=== PATIENT | male | born 1940 | race Two or more races ===

== ENCOUNTER 2024-12-21 16:59 | Inpatient (IN) | payer MEDICAID, SELFPAY ==
[2024-12-21] VITALS (8 sets, daily range): BP systolic 148–252; BP diastolic 79–108; PULSE 63–90; RESP 14–20; TEMP 36.6; O2SAT 95–98; BMI 27.4
--- NOTE | 2024-12-21 17:09 | EKG_ITS ---
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
[2024-12-21 17:52] LABS: Basophils # (Auto) 0.1 Thou/mm3 (0.0-0.2); Basophils % (Auto) 1 % (0-2.5); Eosinophils # (Auto) 0.4 Thou/mm3 (0.0-0.5); Eosinophils % (Auto) 4 % (0-10); Hematocrit 38.4 % (41.0-53.0); Hemoglobin 13.8 g/dL (13.5-16.0); Immature Granulocytes % (Auto) 0 % (0-0); Immature Granulocytes Auto 0.04 Thou/mm3 (0.00-0.00); Lymphocytes # (Auto) 3.5 Thou/mm3 (1.0-4.8); Lymphocytes % (Auto) 35 % (10-50); Mean Corpuscular HGB Conc 35.9 g/dl (31.0-37.0); Mean Corpuscular Hemoglobin 31.8 pg (25.0-35.0); Mean Corpuscular Volume 89 fL (80-100); Monocytes # (Auto) 0.9 Thou/mm3 (0.0-0.8); Monocytes % (Auto) 8 % (0-12); Neutrophils # (Auto) 5.2 Thou/mm3 (1.8-7.7); Neutrophils % (Auto) 51 % (37-80); Nucleated Red Blood Cell % 0 /100 WBC (0); Platelet Count 207 Thou/mm3 (140-440); RDW Standard Deviation 43.8 fL (35.1-43.9); Red Blood Count 4.34 Miln/mm3 (4.50-5.90); White Blood Count 10.1 Thou/mm3 (3.8-10.6)
[2024-12-21 18:17] LABS: Partial Thromboplastin Time 23.8 Seconds (22.0-36.0)
[2024-12-21 18:18] LABS: B-Type Natriuretic Peptide 24 pg/mL (0-100)
[2024-12-21 18:21] LABS: Alanine Aminotransferase 19 U/L (10-49); Albumin, Serum 4.4 gm/dL (3.4-4.8); Albumin/Globulin Ratio 1.3 (1.2-2.2); Alkaline Phosphatase 63 U/L (46-116); Anion Gap 12 (7-16); Aspartate Amino Transferase 27 U/L (0-34); BUN/Creatinine Ratio 11 Ratio (12-20); Bilirubin,Total 0.4 mg/dL (0.3-1.2); Blood Urea Nitrogen 11 mg/dL (9-23); Chloride 99 mMol/L (98-107); Estimated Creatinine Clearance 60.1 mL/min (>60); Globulin 3.4 gm/dL (2.3-3.5); Glucose 127 mg/dL (74-106); Osmolality,Calculated 271 (275-295); Sodium 135 mMol/L (136-145); Total Protein 7.8 gm/dL (5.7-8.2); Troponin I < 0.020 ng/mL (0.0-0.045); eGFR > 60 See Note
[2024-12-21 18:53] LABS: Collection Type, Urine Clean Catch; RBC,Urine 0 /hpf (0-3); Squamous Epithelial Cell,Urine 0 /hpf (0-5)
--- NOTE | 2024-12-21 19:02 | XR_ITS ---
Examination: AP chest single view TECHNIQUE: AP portable upright chest single view Date and time: December 21, 20242034 hours Weakness and shortness of breath beginning 4 days ago. FINDINGS: No significant cardiac enlargement Minor atelectasis left lower lobe No pneumonia or pulmonary edema IMPRESSION: Minor atelectasis left lower lobe
--- NOTE | 2024-12-21 19:03 | XR_ITS ---
Examination: CT chest, without intravenous contrast. CT abdomen, without intravenous contrast. CT pelvis, without intravenous contrast. 2-D sagittal and coronal reconstructions. 3-D reconstructions. Date and time of exam:December 21, 2024 1924 hours INDICATIONS: Weakness chest pain shortness of breath today CTDI vol (mgy) 16 DLP (MGycm)1135 Technique: Multiple CT images, 3.0 mm slice thickness, obtained chest, abdomen, pelvis, with the high-resolution 64 slice scanner.. Sagittal and coronal 2-D reconstructions are obtained. 3-D reconstructions Low dose protocols were performed. One or more of the following dose reduction techniques were used; automated exposure control, adjustment of the mA and/or KV according to patient size, use of iterative reconstruction technique. Findings: No thoracic aortic aneurysm dilatation No paratracheal tracheobronchial or bronchopulmonary adenopathy Moderate vascular congestion No pneumonia or pulmonary edema No liver dilatation no gallstones No pancreatic or adrenal mass Spleen is not enlarged No renal or ureteral calculi, no hydronephrosis Aortic calcification no aneurysm dilatation Normal appendix No bowel obstruction 20 mm fat-containing umbilical hernia Mild prostatomegaly Minimal urinary bladder wall thickening Moderate osteopenia Moderate narrowing hip joints IMPRESSION: Moderate vascular congestion No pneumonia or pulmonary edema No acute process in the abdomen or pelvis
--- NOTE | 2024-12-21 19:03 | XR_ITS ---
Examination: CT brain head without contrast. 2-D sagittal coronal reconstructions Date and time of exam:December 21, 2024 1919 hours INDICATIONS: Weakness headache this week CTDI: vol (mGy):50 DLP: (mGycm):964 Technique: Multiple CT axial sections of the brain have been obtained, 5 mm slice thickness. Contrast has not been administered. 2-D sagittal, coronal reconstructions have been obtained Low dose protocols were performed. One or more of the following dose reduction techniques were used; automated exposure control, adjustment of the mA and/or KV according to patient size, use of iterative reconstruction technique. Findings: No significant ventricular enlargement. Intra-axial or extra-axial hemorrhage density is not seen. No mass effect or midline shift Basal cisterns are not remarkable. Fourth ventricle is midline. Cranial vault intact. Impression: Negative for acute hemorrhage, mass effect or midline shift Advise clinical correlation follow up accordingly
[2024-12-21 19:06] LABS: Bilirubin,Urine Negative (Negative); Blood,Urine Trace (Negative); Clarity,Urine Clear (Clear/Hazy); Color,Urine Colorless (Lt Yel-Yel); Glucose, Urine Negative (Negative); Ketones,Urine Negative (Negative); Leukocyte Esterase,Urine Negative (Negative); Nitrite,Urine Negative (Negative); Protein,Urine Negative (Neg - Trace); Specific Gravity,Urine 1.005 (1.001-1.035); Urobilinogen,Urine Negative mg/dL (0.0-1.0); WBC,Urine < 1 /hpf (0-5)
--- NOTE | 2024-12-21 19:06 | EDNOTE_ITS ---
ED Weakness RME/HPI General Chief complaint: Weakness Stated complaint: WEAKNESS, FATIGUE X4DAYS Time Seen by Provider: 12/21/24 19:01 Arrival date/time: 12/21/24 16:59 RME / HPI RME / HPI Narrative: This section includes all my notes and documentations, including HPI, PE, and ED course. Usman Snyder MD HPI: 84 y/o male with Hx of HTN presents to ED c/o weakness and severe tiredness x few days. Denies nausea and vomiting, but reports mildly decreased appetite. No headache or dizziness. No speech or visual impairment. No loss of power in the arms or legs. No chest pain. No other complaints. ROS: All negative except as documented in HPI. Physical Exam: General:? Alert and oriented.? Appearance of malaise noted. High BP noted. Eyes:? Conjunctivae and lids clear.? EOMI.? PERRL. ENT:? No nasal congestion.? Pharynx normal.? Tympanic membrane normal bilaterally.??? Neck:? Supple.? No carotid bruit.? No JVD.?? Heart:? RRR.? Lungs:? No respiratory distress.? Good air movement.? No rhonchi, wheezing, rales.?? Abdomen:? Soft and nontender.? Back:? No CVA tenderness.?? Legs:? No clubbing, cyanosis, edema.? Skin:? Warm and dry.?? Neuro:? Alert and oriented X 3.? Cranial Nerves II-XII grossly intact.? No peripheral motor deficits. I reviewed all diagnostic test results. My interpretation of the EKG is sinus rhythm with no acute ST?T changes. My interpretation of the chest x-ray is NAD. My review of the Head/Brain CT report is NAD. My review of the Head/Neck CTA report is NAD. My review of the Chest/Abdo/Pelvis CT report is NAD. Blood tests and urine tests unremarkable. Patient developed slurred speech here with no other focal neurological findings. At this point, diagnoses include Stroke-like symptoms, Hypertensive Urgency Treatment here included Catapres, Aspirin, Metoprolol, and Hydralazine. Initially, oral clonidine 0.3 given for high BP. With no improvement, oral metoprolol 50 mg and hydralazine 10 mg IV given. Significant improvement noted. I discussed the case with our teleneurologist and hospitalist. About the presentation and exam and diagnostics and treatments here. And need of further care in the hospital. Will accept the patient. Usman Snyder MD Related Data Allergies Allergy/AdvReac Type Severity Reaction Status Date / Time aspirin Allergy Severe Anaphylaxis Verified 12/21/24 23:24 Review of Systems Review of Systems Systems Reviewed: All systems reviewed, normal except as documented Past Medical History Past Medical History CARDIAC: Positive Hypertension Social History SMOKING STATUS: Never smoker ED Exam Narrative Physical exam: Refer to HPI above Course Course Course Narrative: CXR is ordered for determining the etiology of shortness of breath. Quality Measures none Orders Category Date Time Status Bedside COVID-19 Antigen Test NOW Care 12/21/24 19:44 Active Bedside Influenza A&B Antigen Test NOW Care 12/21/24 19:02 Completed COVID-19 Screening Questionnaire NOW Care 12/21/24 22:38 Active Reprographics Technician Q4H START 00 Care 12/21/24 19:51 Active Decision to Admit X1 Care 12/21/24 22:38 Completed EKG (ED ONLY) *Do not use* NOW Care 12/21/24 17:09 Completed Saline [Insert IV] NOW Care 12/21/24 19:[address] angio stroke protocol Stat Exams 12/21/24 21:[address] chest abdomen pelvis wo Stat Exams 12/21/24 19:[address] head/brain wo con Stat Exams 12/21/24 19:03 Completed EKG (ED Only) Stat Exams 12/21/24 17:09 Ordered XR chest 1V portable Stat Exams 12/21/24 19:02 Completed B-Type Natriuretic Peptide Stat Lab 12/21/24 17:35 Completed C-Reactive Protein Stat Lab 12/21/24 17:35 Completed CBC Stat Lab 12/21/24 17:35 Completed COVID-19 Antigen (In-House) Stat Lab 12/21/24 19:02 Ordered Comprehensive Metabolic Panel Stat Lab 12/21/24 17:35 Completed Free T4 (Free Thyroxine) Stat Lab 12/21/24 17:35 Completed Lactate (Lactic Acid) Stat Lab 12/21/24 20:27 Completed Magnesium Stat Lab 12/21/24 17:35 Completed Partial Thromboplastin Time Stat Lab 12/21/24 17:35 Completed Procalcitonin Stat Lab 12/21/24 17:35 Completed Prothrombin Time with INR Stat Lab 12/21/24 17:35 Completed Sed Rate (ESR) Stat Lab 12/21/24 17:35 Completed Thyroid Stimulating Hormone Stat Lab 12/21/24 17:35 Completed Troponin I Stat Lab 12/21/24 17:35 Completed Urinalysis Stat Lab 12/21/24 18:44 Completed Aspirin Chew Med 12/21/24 21:48 Discontinued 324 mg PO X1 ONE Metoprolol Tartrate [Lopressor] Med 12/21/24 20:21 Discontinued 25 mg PO X1 ONE cloNIDine HCL [Catapres] Med 12/21/24 18:45 Discontinued 0.3 mg PO X1 ONE hydrALAZINE INJ [Apresoline Inj] Med 12/21/24 20:21 Discontinued 10 mg IVP X1 ONE Vital Signs Vital signs: Vital Signs Temperature 97.9 F 12/21/24 17:17 Pulse Rate 90 12/21/24 17:17 Respiratory Rate 20 12/21/24 17:17 Blood Pressure 209/89 H 12/21/24 17:17 Pulse Oximetry (%) 95 12/21/24 17:17 Oxygen Delivery Method Room Air 12/21/24 17:17 Weakness MDM Narrative MDM Narrative:: Scribe Attestation: Mitra Luis, am scribing for and in the presence of Dr. Snyder. Provider Notation: Although this document has been carefully reviewed, there may still be some phonetic and other typographical errors.? These errors are purely grammatical due to imperfections in the software program and should not be construed in any way to? compromise the substance of the patient's medical care during this visit. 84 y/o male with Hx of HTN presents to ED c/o weakness and tiredness x few days. Denies nausea and vomiting, but reports mildly decreased appetite. No other complaints. Patient data External records reviewed:: [facility] previous records (No prior ED records available for review.) Clinical information provided by:: patient Social determinants that could affect healthcare access:: none Patient has the following chronic illnesses:: HTN How is presenting disease/condition affected by chronic disease/condition?: exacerbated by Evaluation data The following diagnostics were reviewed and interpreted by me:: lab results, radiology exam(s) and EKG tracing(s) Lab and/or radiology exams considered but not ordered:: None Interpretation Summary: I reviewed all diagnostic test results. My interpretation of the EKG is sinus rhythm with no acute ST?T changes. My interpretation of the chest x-ray is NAD. My review of the Head/Brain CT report is NAD. My review of the Head/Neck CTA report is NAD. My review of the Chest/Abdo/Pelvis CT report is NAD. Blood tests and urine tests unremarkable. Medications / Prescriptions Medications or Prescriptions considered but not ordered:: None Medication administrations:: Medication Administration History Acetaminophen (Acetaminophen 325 Mg Tablet) 650 mg PO Q6H PRN PRN Reason: Fever >100.4 or pain Stop: 01/20/25 23:03 Aspirin (Aspirin 325 Mg Tablet) 81 mg PO QDAY MARGAUX Stop: 01/21/25 08:59 Atorvastatin Calcium (Atorvastatin Calcium 20 Mg Tablet) 80 mg PO HS MARGAUX Stop: 01/21/25 20:59 Docusate Sodium (Docusate Sod 100 Mg Capsule) 100 mg PO QDAY PRN; Protocol PRN Reason: CONSTIPATION Stop: 01/20/25 23:03 Enoxaparin Sodium (Enoxaparin Sod Inj 40 Mg/0.4 Ml Syringe) 40 mg SC QDAY MARGAUX Stop: 01/05/25 08:59 Ondansetron HCl (Ondansetron Inj 2 Mg/Ml Inj 2 Ml) 4 mg IVP Q6H PRN; Protocol PRN Reason: NAUSEA OR VOMITING Stop: 01/20/25 23:03 Pantoprazole Sodium (Pantoprazole 40 Mg Tablet) 40 mg PO DAILY MARGAUX Stop: 01/21/25 08:59 Sennosides (Senna Tablet) 1 tab PO QDAY PRN; Protocol PRN Reason: constipation Stop: 01/20/25 23:03 Discontinued Medications Aspirin (Aspirin 81 Mg Chew) 324 mg PO X1 ONE Stop: 12/21/24 21:49 Last Admin: 12/21/24 23:26 Dose: Not Given Documented By: EF Non-Admin Reason: Contraindicated Clonidine (Clonidine Hcl 0.1 Mg Tablet) 0.3 mg PO X1 ONE Stop: 12/21/24 18:46 Last Admin: 12/21/24 19:42 Dose: 0.3 mg Documented By: CVL Hydralazine HCl (Hydralazine Inj 20 Mg/Ml Vial) 10 mg IVP X1 ONE Stop: 12/21/24 20:22 Last Admin: 12/21/24 20:28 Dose: 10 mg Documented By: EF Sodium Chloride (Ns) 500 mls @ 999 mls/hr IV .Q31M ONE Stop: 12/21/24 23:34 Last Infusion: 12/21/24 23:55 Dose: Infused Documented By: Admin: 12/21/24 23:28 Dose: 999 mls/hr Documented By: EF Lactated Ringer's (Lactated Ringers) 500 mls @ 999 mls/hr IV .Q31M ONE Stop: 12/22/24 02:07 Metoprolol Tartrate (Metoprolol Tartrate 25 Mg Tablet) 25 mg PO X1 ONE Stop: 12/21/24 20:22 Last Admin: 12/21/24 20:27 Dose: 25 mg Documented By: EF Catapres, Aspirin, Metoprolol, Apresoline Consultations Consultation(s) initiated? (list below): Yes Consultation #1 (Physician, Specialty, Details): I discussed the case with our teleneurologist. About the presentation and exam and diagnostics and treatments here. Recommended admission for further care. Time: 23:04 Diagnosis Weakness Differential Diagnosis: acute myocardial infarction, anemia, hypoglycemia, hypothyroidism, rhabdomyolysis, sepsis, dehydration and other (CVA, TIA, electrolyte abnormalities) Most likely diagnosis given after review of the tests above:: Stroke-like symptoms, Hypertensive Emergency Admission Indicated Admission indicated?: indicated Explain why admission is indicated or not indicated:: Stroke-like symptoms, Hypertensive Emergency Admission Request Was there a request for admission?: Yes Admission Attestation Admission request attestation: Discussed case with Hospitalist service regarding admission. Discussed patients ED course, exam findings, labs, and radiology results. The Hospitalist [agrees] to accept the patient for admission. Disposition Plan Disposition Plan: Admit Critical Care Time Critical Care Time Critical Care Time: Yes Total Critical Care Time (min.): 42 Attestation: Due to a high probability of clinically significant, life threatening dete rioration, the patient required my highest level of preparedness to intervene emergently and I personally spent this critical care time directly and personally managing the patient. This critical care time included obtaining a history; examining the patient; ordering and review of studies; arranging urgent treatment with development of a management plan; evaluation of patient's response to treatment; frequent reassessment; and discussions with family and other providers. It was exclusive of separately billable procedures and treating other patients and teaching time. Usman Snyder MD Discharge Plan Plan Patient Disposition: Admit Acute Care w/in Hospital Problem List Clinical Impression: Stroke-like symptoms, Hypertensive emergency, Generalized weakness
[2024-12-21] MEDS: cloNIDine HCL 0.1 MG TABLET 0.3 MG PO (19:42)
[2024-12-21 20:08] LABS: Sed Rate (ESR) 30 mm/hr (0-20)
[2024-12-21] MEDS: METOPROLOL TARTRATE 25 MG TABLET PO (20:27)
[2024-12-21] MEDS: hydrALAZINE INJ 20 MG/ML VIAL 10 MG IVP (20:28)
[2024-12-21 20:35] LABS: Lactate (Lactic Acid) 2.4 mMol/L (0.4-2.0)
[2024-12-21 21:09] LABS: C-Reactive Protein < 0.5 mg/dL (0.0-0.9)
--- NOTE | 2024-12-21 21:25 | XR_ITS ---
Examination: CTA carotids with intravenous contrast CTA brain, head with intravenous contrast. 2-D sagittal, coronal reconstructions. 3-D reconstructions. Exam date and time: December 21, 2024 2134 hours INDICATIONS: Stroke alert onset focal neurologic deficit this evening CTDI: vol (mGy) 31 DLP: (mGycm) 527 Technique: Multiple CTA axial brain, head carotid images post intravenous contrast injection 9 5 cc, [id number]. 2-D sagittal, coronal reconstructions. 3-D reconstructions, 3-D post processing including vascular maximum intensity projection images. Low dose protocols were performed. One or more of the following dose reduction techniques were used; automated exposure control, adjustment of the mA and/or KV according to patient size, use of iterative reconstruction technique. Findings: 30% stenosis origin right internal carotid artery 90% stenosis origin left internal carotid artery Dominant left vertebral artery Basilar artery posterior cerebral branches, fill Juxtasellar supraclinoid portions internal carotid arteries M1 segments middle cerebral artery branches posterior cerebral arteries and anterior cerebral arteries fill with no large vessel occlusions IMPRESSION: 30% stenosis origin right internal carotid artery. 90% stenosis origin left internal carotid artery No cerebral large vessel arterial occlusions or thrombus
[2024-12-21 21:56] LABS: Free T4 (Free Thyroxine) 1.45 ng/dL (0.89-1.76); Procalcitonin 0.06 ng/ml (0.0-0.49); Thyroid Stimulating Hormone 2.07 uIU/mL (0.55-4.78)
--- NOTE | 2024-12-21 22:03 | ESCONSULT_ITS ---
Tele Neuro Consultation Consultation Date 12/21/24 Most Recent Vital Signs Last Vital Signs Temp 97.9 F 12/21/24 17:17 Pulse 75 12/21/24 20:28 Resp 14 12/21/24 19:40 BP 149/80 H 12/21/24 21:19 Pulse Ox 97 12/21/24 19:40 O2 Del Method Room Air 12/21/24 17:17 Laboratory-Coagulation Panel PT 11.0 Seconds (9.0-12.2) 12/21/24 17:35 INR 1.0 (0.9-1.3) 12/21/24 17:35 APTT 23.8 Seconds (22.0-36.0) 12/21/24 17:35 Consultation Narrative [facility] Patient Name:???juan morales Date of :???1940 Identification Number:??? Date of Service:???12/21/2024 21:28:43 Diagnosis:?R47.81 - Slurred speech ?M62.81 - Generalized Muscle Weakness Impression: ?This patient is an 84-year-old male with a past medical history of hypertension presenting for evaluation of generalized weakness and slurred speech. It is not entirely clear what the cause of the patient's generalized fatigue, and weakness may be related to. He does appear to have a mild dysarthria, but it is unclear when this started. Recommend placing the patient on aspirin and obtaining an MRI brain without contrast while toxic metabolic evaluation is underway. CT angiogram is pending, but given his lack of focal neurologic findings he would not be a candidate for thrombectomy. Our recommendations are outlined below. Recommendations: ? Stroke/Telemetry Floor ? Neuro Checks (Q4) ? Bedside Swallow Eval ? DVT Prophylaxis ? IV Fluids, Normal Saline ? Head of Bed 30 Degrees ? Euglycemia and Avoid Hyperthermia (PRN Acetaminophen) ? Initiate or continue Aspirin 81 MG daily ? Antihypertensives PRN if Blood pressure is greater than 220/120 or there is a concern for End organ damage/contraindications for permissive HTN. If blood pressure is greater than 220/120 give labetalol PO or IV or Vasotec IV with a goal of 15% reduction in BP during the first 24 hours. Sign Out: ? Discussed with Emergency Department Provider Advanced Imaging: Advanced imaging has been ordered. Results pending. Metrics: Last Known Well: Unknown Dispatch Time: 12/21/2024 21:28:43 Arrival Time: 12/21/2024 16:59:00 Initial Response Time: 12/21/2024 21:31:34Symptoms: facial droop. Initial patient interaction: 12/21/2024 21:34:40 NIHSS Assessment Completed: 12/21/2024 21:36:32Patient is not a candidate for Thrombolytic. Thrombolytic Medical Decision: 12/21/2024 21:36:36Patient was not deemed candidate for Thrombolytic because of following reasons: LKW outside 4.[address] Head: I personally reviewed all the CT images that were available to me and it showed: no acute findings Primary Provider Notified of Diagnostic Impression and Management Plan on: 12/21/2024 21:49:26 History of Present Illness:Patient is a 84 year old Male. Patient was brought by private transportation with symptoms of facial droop. This patient is an 84-year-old male with a past medical history of hypertension presenting to the ER for evaluation of generalized weakness and slurred speech. The patient states that he has been experiencing increasing generalized weakness over the last several days and was being worked up for toxic metabolic issues while in the ER. It was then noted that he had slurring of his speech by ER staff for which a stroke alert was activated. The patient denies any changes to his speech and denies any focal neurologic changes. He is also endorsing lethargy, fatigue, and mild headache. Past Medical History: ?Hypertension ?There is no history of Stroke Medications: No Anticoagulant use? No Antiplatelet use Reviewed EMR for current medications Allergies:? Reviewed Social History: Drug Use: Yes Family History: There is no family history of premature cerebrovascular disease pertinent to this consultation ROS : 14 Points Review of Systems was performed and was negative except mentioned in HPI. Past Surgical History: There Is No Surgical History Contributory To Today?s Visit Examination: BP(158/88),?Pulse(88), 1A: Level of Consciousness - Alert; keenly responsive?+ 0 1B: Ask Month and Age - Both Questions Right?+ 0 1C: Blink Eyes & Squeeze Hands - Performs Both Tasks?+ 0 2: Test Horizontal Extraocular Movements - Normal?+ 0 3: Test Visual Pritchard - No Visual Loss?+ 0 4: Test Facial Palsy (Use Grimace if Obtunded) - Normal symmetry?+ 0 5A: Test Left Arm Motor Drift - No Drift for 10 Seconds?+ 0 5B: Test Right Arm Motor Drift - No Drift for 10 Seconds?+ 0 6A: Test Left Leg Motor Drift - No Drift for 5 Seconds?+ 0 6B: Test Right Leg Motor Drift - No Drift for 5 Seconds?+ 0 7: Test Limb Ataxia (FNF/Heel-Shipley) - No Ataxia?+ 0 8: Test Sensation - Normal; No sensory loss?+ 0 9: Test Language/Aphasia - Normal; No aphasia?+ 0 10: Test Dysarthria - Mild-Moderate Dysarthria: Slurring but can be understood?+ 1 11: Test Extinction/Inattention - No abnormality?+ 0 NIHSS Score:?1 Pre-Morbid Modified Rosangela Scale:0 Points = No symptoms at all Spoke with :?er provider This consult was conducted in real time using interactive audio and video technology. Patient was informed of the technology being used for this visit and agreed to proceed. Patient located in hospital and provider located at home/office setting. Patient is being evaluated for possible acute neurologic impairment and high probability of imminent or life-threatening deterioration. I spent total of 35 minutes providing care to this patient, including time for face to face visit via telemedicine, review of medical records, imaging studies and discussion of findings with providers, the patient and/or family. Dr Maurice Willams [facility] For Inpatient follow-up with [facility] physician please call [facility] at . As we are not an outpatient service for any post hospital discharge needs please contact the hospital for assistance. If you have any questions for the [facility] physicians or need to reconsult for clinical or diagnostic changes please contact us via [facility] at .
--- NOTE | 2024-12-21 23:07 | ECHO_ITS ---
Transthoracic Echo Report Ht (in): 68 Wt (lb): 185 Exam Location: Echo Lab Status: Emergency Gynecologist: Karishma Barrios Indications: Procedure Performed: BP: 157 / 80 HR: 68 Technical Quality: Technically difficult study MEASUREMENTS (Male / Female) Normal Values 2D ECHO LV Diastolic Diameter PLAX 4.8 cm 4.2 - 5.9 / 3.9 - 5.3 cm LV Systolic Diameter PLAX 3.2 cm IVS Diastolic Thickness 1.0 cm 0.6 - 1.0 / 0.6 - 0.9 cm LVPW Diastolic Thickness 1.0 cm 0.6 - 1.0 / 0.6 - 0.9 cm LV Relative Wall Thickness 0.4 LVOT Diameter 1.9 cm LV Ejection Fraction MOD BP 46.5 % >= 55 % LV Cardiac Index MOD BP 1551.2 cm?/min?m? LV Ejection Fraction MOD 4C 37.8 % LV Cardiac Index MOD 4C 1296.0 cm?/min?m? LV Ejection Fraction 4C AL 39.6 % LV Cardiac Index 4C AL 1411.7 cm?/min?m? LV Ejection Fraction MOD 2C 53.7 % LV Cardiac Index MOD 2C 1705.6 cm?/min?m? LV Ejection Fraction 2C AL 53.4 % LV Cardiac Index 2C AL 1716.2 cm?/min?m? LA Volume Index 19.7 cm?/m? 16 - 28 cm?/m? M-MODE Aortic Root Diameter MM 3.3 cm LA Systolic Diameter MM 3.2 cm LA Ao Ratio MM 1.0 AV Cusp Separation MM 1.9 cm DOPPLER AV Peak Velocity 142.0 cm/s AV Peak Gradient 8.1 mmHg AV Mean Gradient 5.0 mmHg AV Velocity Time Integral 30.7 cm LVOT Peak Velocity 83.5 cm/s LVOT Peak Gradient 2.8 mmHg LVOT Velocity Time Integral 19.6 cm LVOT Cardiac Index 1865.8 cm?/min?m? AV Area Cont Eq vti 1.8 cm? AV Area Cont Eq pk 1.7 cm? MV Area PHT 3.3 cm? Mitral E Point Velocity 44.6 cm/s Mitral A Point Velocity 75.2 cm/s Mitral E to A Ratio 0.6 LV E' Lateral Velocity 8.2 cm/s Mitral E to LV E' Lateral Ratio 5.5 LV E' Septal Velocity 6.2 cm/s Mitral E to LV E' Septal Ratio 7.2 PV Peak Velocity 65.2 cm/s PV Peak Gradient 1.7 mmHg FINDINGS Left Ventricle Normal left ventricular size, wall thickness, systolic function with no obvious regional wall motion abnormalities. There is grade I diastolic dysfunction of the left ventricle (impaired relaxation pattern). The ejection fraction is visually estimated at 55-60%. Right Ventricle The right ventricle is normal in size and systolic function. Left Atrium The left atrium is normal by two-dimensional, color flow and Doppler imaging with no structural abnormalities, no thrombus formation present. Right Atrium The right atrium is normal by two-dimensional imaging, color flow and Doppler imaging with no structural abnormalities, no thrombus formation present. Atrial Septum The interatrial septum appears normal with no evidence of a shunt. Aorta The aorta is normal by two-dimensional, color flow and Doppler interrogation. Mitral Valve The mitral valve is normal by two-dimensional, color flow and Doppler interrogation. There is no significant mitral valve regurgitation, stenosis or prolapse. Aortic Valve The aortic valve is trileaflet and normal by two-dimensional, color flow and Doppler interrogation. There is no significant aortic valve regurgitation. Tricuspid Valve The tricuspid valve is normal by two-dimensional, color flow and Doppler interrogation. There is trace tricuspid valve regurgitation. Pulmonic Valve The pulmonic valve is not well visualized. There is no significant pulmonic valve regurgitation. Vessels The pulmonary artery appears normal. The inferior vena cava pulmonary and hepatic veins appear normal. Pericardium The pericardium is normal by two-dimensional imaging. There is no significant pericardial effusion. CONCLUSIONS Indication: stroke Negative bubble study for any PFO or ASD. Consider FARHAN if high clinical riskof suspicion. Normal LV size and function. Estimated EF 55-60%. Grade I diastolic dysfunction. RV is normla in size and systolic function. Trace TR and MR. Jax Evangelistacj (Electronically Signed) Final Date: 23 December 2024 13:04
--- NOTE | 2024-12-21 23:26 | ESHP_ITS ---
Documentation for date of: 12/21/24 HPI History of Present Illness Chief complaint: Weakness, slurred speech History of present illness: 84 y/o M with PMHx significant for HTN presents with chief complaint of weakness x 2 days and slurred speech. Patient is complaining of generalized weakness with fatigue for past 2 days, most notably in the bilateral upper extremities. Patient was complaint of generalized malaise, prompting ED visit. At some point today, patient experienced slurred speech and feelings of heavy tongue . Patient denies any history of similar symptoms in the past. Patient denies fever, chills, SOB, chest pain, nausea, vomiting. ED COURSE: Labs significant for: WBC 10.1, hemoglobin 13.8, lactic acid 2.4 up trended to 2.9. Imaging significant for: CT abdomen/chest/pelvis showed mild vascular congestion. Head CT unremarkable. Head/neck CTA showing no LVO. Patient was severely hypertensive, blood pressure at 252/103. Patient received clonidine, metoprolol, hydralazine, blood pressure decreased significantly. Teleneuro consulted, recommended admission and further workup. PMH: Hypertension PSH: None SH: Denies alcohol, tobacco, illicit drug use. Allergies:?NKDA Medications: Losartan Review of Systems Review of Systems Systems Reviewed: All systems reviewed, normal except as documented Past Medical History Past Medical History Comments PMH COMMENT: PMH: Hypertension PSH: None SH: Denies alcohol, tobacco, illicit drug use. Allergies:?NKDA Medications: Losartan Exam Vital Signs Temp Pulse Resp BP Pulse Ox O2 Del Method 97.9 F 63 15 148/79 H 98 Room Air 12/21/24 17:17 12/21/24 23:15 12/21/24 23:15 12/21/24 23:15 12/21/24 23:15 12/21/24 23:15 Narrative Exam PE: Gen: Well-developed and well-nourished. HEENT: NCAT, PERRLA, EOMI, MMM, anicteric conjunctivae. CVS: normal S1 and S2. RRR. No M/R/G. Resp: CTA B/L. No rhonchi, rales, crackles or wheezing. Abd: soft, non-tender, non-distended. MSK: Good ROM in BUE & BLE. No edema or rash. Neuro: CN II-XII grossly intact. Strength 5/5 in BUE & BLE. Alert and oriented x3. Left-sided facial droop with nasolabial flattening. Sensation intact bilaterally. Psych: appropriate mood and affect. Results: Labs 12/21/24 17:35 12/21/24 17:35 Labs: Short CBC 12/21/24 Range/Units 17:35 WBC 10.1 (3.8-10.6) Thou/mm3 Hgb 13.8 (13.5-16.0) g/dL Hct 38.4 L (41.0-53.0) % Plt Count 207 (140-440) Thou/mm3 BMP 12/21/24 17:35 Sodium 135 L Potassium 4.0 Chloride 99 Carbon Dioxide 24.0 BUN 11 Creatinine 1.0 Glucose 127 H Calcium 10.0 Cardiac Enzymes 12/21/24 Range/Units 17:35 Troponin I < 0.020 (0.0-0.045) ng/mL Liver Function 12/21/24 Range/Units 17:35 Total Bilirubin 0.4 (0.3-1.2) mg/dL AST 27 (0-34) U/L ALT 19 (10-49) U/L Alkaline Phosphatase 63 (46-116) U/L Albumin 4.4 (3.4-4.8) gm/dL Urine 12/21/24 Range/Units 18:44 Urine Color Colorless A (Lt Yel-Yel) Urine Clarity Clear (Clear/Hazy) Urine pH 7.0 (5.0-7.0) Ur Specific [place] 1.005 (1.001-1.035) Urine Protein Negative (Neg - Trace) Urine Glucose (UA) Negative (Negative) Quality Measures Quality Measures VTE prophylaxis Advance care planning discussed with:: patient and child Medications Home Medications and Allergies Allergies Allergy/AdvReac Type Severity Reaction Status Date / Time aspirin Allergy Severe Anaphylaxis Verified 12/21/24 23:24 Visit Medications Acetaminophen (Acetaminophen 325 Mg Tablet) 650 mg PO Q6H PRN PRN Reason: Fever >100.4 or pain Stop: 01/20/25 23:03 Aspirin (Aspirin 325 Mg Tablet) 81 mg PO QDAY MARGAUX Stop: 01/21/25 08:59 Atorvastatin Calcium (Atorvastatin Calcium 20 Mg Tablet) 80 mg PO HS MARGAUX Stop: 01/21/25 20:59 Docusate Sodium (Docusate Sod 100 Mg Capsule) 100 mg PO QDAY PRN; Protocol PRN Reason: CONSTIPATION Stop: 01/20/25 23:03 Enoxaparin Sodium (Enoxaparin Sod Inj 40 Mg/0.4 Ml Syringe) 40 mg SC QDAY MARGAUX Stop: 01/05/25 08:59 Sodium Chloride (Ns) 500 mls @ 999 mls/hr IV .Q31M ONE Stop: 12/21/24 23:34 Ondansetron HCl (Ondansetron Inj 2 Mg/Ml Inj 2 Ml) 4 mg IVP Q6H PRN; Protocol PRN Reason: NAUSEA OR VOMITING Stop: 01/20/25 23:03 Pantoprazole Sodium (Pantoprazole 40 Mg Tablet) 40 mg PO DAILY MARGAUX Stop: 01/21/25 08:59 Sennosides (Senna Tablet) 1 tab PO QDAY PRN; Protocol PRN Reason: constipation Stop: 01/20/25 23:03 Discontinued Medications Aspirin (Aspirin 81 Mg Chew) 324 mg PO X1 ONE Stop: 12/21/24 21:49 Clonidine (Clonidine Hcl 0.1 Mg Tablet) 0.3 mg PO X1 ONE Stop: 12/21/24 18:46 Last Admin: 12/21/24 19:42 Dose: 0.3 mg Hydralazine HCl (Hydralazine Inj 20 Mg/Ml Vial) 10 mg IVP X1 ONE Stop: 12/21/24 20:22 Last Admin: 12/21/24 20:28 Dose: 10 mg Metoprolol Tartrate (Metoprolol Tartrate 25 Mg Tablet) 25 mg PO X1 ONE Stop: 12/21/24 20:22 Last Admin: 12/21/24 20:27 Dose: 25 mg Assessment & Plan Plan 84 y/o M with PMHx significant for HTN presents with chief complaint of weakness x 2 days and slurred speech, admitted for hypertensive emergency. #Hypertensive emergency #HTN, patient history Patient has history of hypertension controlled with losartan. Patient presenting with chief complaint of weakness x 2 days, had sudden onset of slurred speech, feeling tongue and jaw were heavy . Blood pressure reached 252/103. Received clonidine, metoprolol, hydralazine in the ED. BP decreased to 128/56. Teleneuro consulted, recommended further workup for potential CVA. - Aspirin 81 mg p.o. daily - MRI without contrast - Neurochecks every 4 hours - Blood pressure already decreased by 50%, hold BP meds - Close monitoring of blood pressure - N.p.o. pending swallow screen - ST/PT eval pending #Lactic acidosis Patient had lactic acidosis, 2.4 up trended to 2.9. Patient does not have signs of infection, afebrile, WBC is normal. Suspect secondary to hypertensive emergency. Patient received 500 mL bolus normal saline. - 500 mL bolus lactated Ringer's - Trend lactate - Treat HTN emergency as above DVT prophylaxis: Lovenox GI prophylaxis: Protonix Diet: N.p.o. pending swallow screen Lines: Peripheral IV Code status: Full code Plan of care discussed with attending Dr. Rivera. Ciro Lyon MD PGY?1 Attending Provider Attestation/Addendum I have examined the patient, reviewed labs and imaging findings, discussed the case with the resident(s), and reviewed entered orders. I agree with the plan of care as outlined in this note, with these additional summaries/recommendations: After examination of the patient and review of the clinical data, I feel that this patient needs admission to the hospital for further treatment and evaluation. Patient is a 84-year-old male with a medical history of primary hypertension and dyslipidemia who presents to [facility] emergency department on 12/21/2024 with chief complaints of weakness and tiredness. While in the emergency department patient noted to have slurred speech and stroke alert was called. Patient will be admitted for strokelike symptoms and CVA rule out. He has generalized weakness and slurred speech. Patient was seen by teleneurology who recommends placing patient on aspirin 81 mg p.o. daily and obtaining MRI brain. Head CT showed no evidence of acute hemorrhage, mass effect or midline shift. CTA head and neck showed moderate left ICA stenosis and no LVO. NIHSS score of 1 on admission. Admit patient to telemetry, order MRI brain, allow permissive hypertension 220/120. Order risk factor stratification with lipid panel, TSH, and A1c. Consult in-house neurology, recommendations appreciated. Start high intensity statin. Referral to speech therapy and physical therapy. Order echocardiogram with bubble study. Patient also noted to have significantly elevated blood pressure on admission 252/103 and possible patient's symptoms are related to hypertensive emergency. Patient did receive IV antihypertensives in the ED although we will defer further antihypertensives for now to allow permissive hypertension. Interestingly patient has lactic acidosis of unknown etiology although mild. We will give IV fluids and continue to trend for now. Patient and updated on the plan. All questions answered to satisfaction. Please see residents note for additional details and management. Dr. Miguel MD
[2024-12-21] MEDS: SODIUM CHLORIDE 0.9% 500 ML 500 ML 999 ML IV (23:28)
[2024-12-21 23:34] LABS: Reflex Lactate? Y
[2024-12-21 23:47] LABS: Lactic Acid, 3 HR 2.9 mMol/L (0.4-2.0)
[2024-12-22] VITALS (7 sets, daily range): BP systolic 128–181; BP diastolic 56–92; PULSE 54–99; RESP 16–20; TEMP 36.2–36.8; O2SAT 95–98; BMI 28.3; BMI 28.4
--- NOTE | 2024-12-22 | XR_ITS ---
Examinations: MRI Brain without intravenous contrast. MRA brain without intravenous contrast. MRA carotids without intravenous contrast 3-D vascular reconstructions Date and time of exam: December 22, 2024 0820 hrs. Indications: Stroke alert, generalized weakness beginning 2 days ago onset focal neurologic deficit Technique: Multiple axial and sagittal images of the brain have been obtained MRA brain carotid images without contrast obtained, including 3-D postprocessing, vascular maximum intensity projection images Findings: [place] is not enlarged. The optic chiasm and infundibular stalk are not remarkable. Prepontine and interpeduncular cisterns are not enlarged. No localized enlargement of the medulla or sona. Fourth ventricle and cerebellar tonsils normal in position. Subacute hemorrhage is not seen. Fourth ventricle is midline. Mass in the cerebellopontine angle region is not evident. 7th and 8th nerve complexes exhibits symmetry. Globes are symmetrical with no retro-orbital mass. Increased white matter signal prominent Diffusion-weighted images demonstrate 14 mm focus restricted diffusion right brainstem Mass-effect upon the ventricular system is not identified. MRA carotid images degraded by patient motion. 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
[2024-12-22] MEDS: RINGERS LACTATED 1000 ML 1,000 ML 999 ML IV (04:24)
[2024-12-22 05:31] LABS: Basophils # (Auto) 0.1 Thou/mm3 (0.0-0.2); Basophils % (Auto) 1 % (0-2.5); Eosinophils # (Auto) 0.4 Thou/mm3 (0.0-0.5); Eosinophils % (Auto) 5 % (0-10); Hematocrit 39.1 % (41.0-53.0); Hemoglobin 13.4 g/dL (13.5-16.0); Immature Granulocytes % (Auto) 1 % (0-0); Immature Granulocytes Auto 0.04 Thou/mm3 (0.00-0.00); Lymphocytes # (Auto) 2.7 Thou/mm3 (1.0-4.8); Lymphocytes % (Auto) 31 % (10-50); Mean Corpuscular HGB Conc 34.3 g/dl (31.0-37.0); Mean Corpuscular Hemoglobin 31.4 pg (25.0-35.0); Mean Corpuscular Volume 92 fL (80-100); Monocytes # (Auto) 0.8 Thou/mm3 (0.0-0.8); Monocytes % (Auto) 9 % (0-12); Neutrophils # (Auto) 4.7 Thou/mm3 (1.8-7.7); Neutrophils % (Auto) 54 % (37-80); Nucleated Red Blood Cell % 0 /100 WBC (0); Platelet Count 253 Thou/mm3 (140-440); RDW Standard Deviation 45.2 fL (35.1-43.9); Red Blood Count 4.27 Miln/mm3 (4.50-5.90); White Blood Count 8.6 Thou/mm3 (3.8-10.6)
[2024-12-22 05:50] LABS: Prothrombin Time 11.3 Seconds (9.0-12.2)
[2024-12-22 06:00] LABS: Alanine Aminotransferase 16 U/L (10-49); Albumin, Serum 3.8 gm/dL (3.4-4.8); Albumin/Globulin Ratio 1.4 (1.2-2.2); Alkaline Phosphatase 56 U/L (46-116); Anion Gap 11 (7-16); Aspartate Amino Transferase 21 U/L (0-34); BUN/Creatinine Ratio 14 Ratio (12-20); Bilirubin,Total 0.5 mg/dL (0.3-1.2); Blood Urea Nitrogen 11 mg/dL (9-23); Calcium 8.8 mg/dL (8.3-10.6); Carbon Dioxide 24.8 mMol/L (20.0-31.0); Cardiac Risk Estimate 6.2 RATIO (4.0-6.7); Chloride 105 mMol/L (98-107); Cholesterol 198 mg/dL (132-200); Creatinine (Component) 0.8 mg/dL (0.6-1.3); Estimated Creatinine Clearance 76.2 mL/min (>60); Globulin 2.7 gm/dL (2.3-3.5); Glucose 107 mg/dL (74-106); Glucose Estimated Average 120 mg/dL (80-131); HDL Cholesterol 32 mg/dL (40-60); Hemoglobin A1C 5.8 % Hgb (4.8-6.0); LDL Cholesterol,Calculated 132 mg/dL (0-130); Magnesium 1.8 mg/dL (1.6-2.6); Osmolality,Calculated 280 (275-295); Phosphorous 3.6 mg/dL (2.4-5.1); Potassium 3.9 mMol/L (3.4-5.1); Sodium 141 mMol/L (136-145); Total Protein 6.5 gm/dL (5.7-8.2); Triglycerides 168 mg/dL (30-150); eGFR > 60 See Note
--- NOTE | 2024-12-22 07:51 | ESPR_ITS ---
<Statement entered by Adri Doe MD - 12/26/24 15:45> I reviewed above note and agree with findings and plans. I have also personally examined the patient with medicine team and went over assessment and plan with medical team including product development intern and resident physician. Documentation for date of: 12/22/24 Subjective Subjective Interval history: Patient was seen and examined at bedside this morning. No events. Patient's labs today. Fairly unchanged from yesterday. Patient did have MRI done this morning that showed an acute 14 mm right upper extremity infarct at the pontine level. Patient physical exam did have some dysmetria mainly on his left side. EKG did not show A-fib and only showed some first-degree AV block. Patient also had bigeminy on the monitor his magnesium was repleted. Patient stated that he is allergic to aspirin and that he usually gets very swollen around the mouth and starts itching therefore aspirin at this time is contraindicated. Exam Vital Signs Temp Pulse Resp BP Pulse Ox O2 Del Method 97.3 F 77 17 166/85 H 95 Room Air 12/22/24 04:00 12/22/24 04:00 12/22/24 04:00 12/22/24 04:00 12/22/24 04:00 12/22/24 04:00 Narrative Exam General: A/O x3, no acute distress Eyes: PERRL, EOMI. Anicteric, vision grossly intact. Ears: No ear pain, no ear discharge, Hearing grossly intact. Nose: No nasal discharge. Mouth/Throat: Moist mucous membranes, no redness, no lesions. Neck: Neck supple, non-tender, no cervical lymphadenopathy. Lungs: Clear [place] to auscultation and percussion, No accessory muscle use. Cardio: Normal S1/S2, regular rhythm, no murmurs, no JVD Abdomen: Soft, non-tender, no palpable masses, peristalsis present, no guarding or rebound. Extremities: Symmetrical, no significant deformities, no peripheral edema , non-tender, peripheral pulses presents. Skin: No rashes, no lesions, warm to touch. Neuro: Patient did appear to have some dysmetria greater on the left side than the right with nose to finger test. Patient was able to move lower extremities and strength bilaterally upper and lower extremities seen 5 out of 5. Patient also had some slurred speech, but was comprehensible. He also stated he was having some difficulty opening his mouth. He was able to follow instructions. Objective Labs 12/22/24 05:03 12/22/24 05:03 Labs: Laboratory Results - last 24 hr 12/21/24 12/21/24 12/21/24 17:35 18:44 20:27 WBC 10.1 RBC 4.34 L Hgb 13.8 Hct 38.4 L MCV 89 MCH 31.8 MCHC 35.9 RDW Std Deviation 43.8 Plt Count 207 Neut % (Auto) 51 Lymph % (Auto) 35 [place] % (Auto) 8 Eos % (Auto) 4 Baso % (Auto) 1 Neut # (Auto) 5.2 Lymph # (Auto) 3.5 [place] # (Auto) 0.9 H Eos # (Auto) 0.4 Baso # (Auto) 0.1 Immature Gran # (Auto) 0.04 H Absolute Nucleated RBC 0.00 Immature Gran % 0 Nucleated RBC % 0 ESR 30 H PT 11.0 INR 1.0 APTT 23.8 Sodium 135 L Potassium 4.0 Chloride 99 Carbon Dioxide 24.0 Anion Gap 12 BUN 11 Creatinine 1.0 Estim Creat Clear Calc 60.1 L eGFR > 60 BUN/Creatinine Ratio 11 L Glucose [address] Glu mg/dL Hemoglobin A1c Calculated Osmolality 271 L Lactic Acid 2.4 H Calcium 10.0 Corrected Calcium 10.0 Phosphorus Magnesium 2.0 Total Bilirubin 0.4 AST 27 ALT 19 Alkaline Phosphatase 63 Troponin I < 0.020 C-Reactive Prot, Quant < 0.5 B-Natriuretic Peptide 24 Total Protein 7.8 Albumin 4.4 Globulin 3.4 Albumin/Globulin Ratio 1.3 Triglycerides Cholesterol LDL Cholesterol, Calc HDL Cholesterol Cholesterol/HDL Ratio Procalcitonin 0.06 TSH 2.07 Free T4 1.45 Ur Collection Type Clean Catch Urine Color Colorless A Urine Clarity Clear Urine pH 7.0 Ur Specific [place] 1.005 Urine Protein Negative Urine Glucose (UA) Negative Urine Ketones Negative Urine Blood Trace Urine Nitrite Negative Urine Bilirubin Negative Urine Urobilinogen (Auto) Negative Ur Leukocyte Esterase Negative Urine RBC 0 Urine WBC < 1 Ur Squamous Epith Cells 0 Urine Bacteria None 12/21/24 12/22/24 23:41 05:03 WBC 8.6 RBC 4.27 L Hgb 13.4 L Hct 39.1 L MCV 92 MCH 31.4 MCHC 34.3 RDW Std Deviation 45.2 H Plt Count 253 D Neut % (Auto) 54 Lymph % (Auto) 31 [place] % (Auto) 9 Eos % (Auto) 5 Baso % (Auto) 1 Neut # (Auto) 4.7 Lymph # (Auto) 2.7 [place] # (Auto) 0.8 Eos # (Auto) 0.4 Baso # (Auto) 0.1 Immature Gran # (Auto) 0.04 H Absolute Nucleated RBC 0.00 Immature Gran % 1 H Nucleated RBC % 0 ESR PT 11.3 INR 1.0 APTT Sodium 141 Potassium 3.9 Chloride 105 Carbon Dioxide 24.8 Anion Gap 11 BUN 11 Creatinine 0.8 Estim Creat Clear Calc 76.2 eGFR > 60 BUN/Creatinine Ratio 14 [address]ucose [address] Glu mg/dL 120 Hemoglobin A1c 5.8 Calculated Osmolality 280 Lactic Acid 2.9 H Calcium 8.8 Corrected Calcium 9.0 Phosphorus 3.6 Magnesium 1.8 Total Bilirubin 0.5 AST 21 ALT 16 Alkaline Phosphatase 56 Troponin I C-Reactive Prot, Quant B-Natriuretic Peptide Total Protein 6.5 Albumin 3.8 D Globulin 2.7 Albumin/Globulin Ratio 1.4 Triglycerides 168 H Cholesterol 198 LDL Cholesterol, Calc 132 H HDL Cholesterol 32 L Cholesterol/HDL Ratio 6.2 Procalcitonin TSH 3.60 Free T4 Ur Collection Type Urine Color Urine Clarity Urine pH Ur Specific [place] Urine Protein Urine Glucose (UA) Urine Ketones Urine Blood Urine Nitrite Urine Bilirubin Urine Urobilinogen (Auto) Ur Leukocyte Esterase Urine RBC Urine WBC Ur Squamous Epith Cells Urine Bacteria Quality Measures Quality Measures VTE prophylaxis Advance care planning discussed with:: patient and child Assessment & Plan Assessment Current Active Medications: Generic Name Dose Route Start Last Admin Trade Name Freq PRN Reason Stop Dose Admin Acetaminophen 650 mg 12/21/24 23:04 Acetaminophen 325 Mg Tablet PO 01/20/25 23:03 Q6H PRN Fever >100.4 or pain Atorvastatin Calcium 80 mg 12/22/24 21:00 Atorvastatin Calcium 20 Mg Tablet PO 01/21/25 20:59 HS MARGAUX Docusate Sodium 100 mg 12/21/24 23:04 Docusate Sod 100 Mg Capsule PO 01/20/25 23:03 QDAY PRN CONSTIPATION Protocol Enoxaparin Sodium 40 mg 12/22/24 09:00 Enoxaparin Sod Inj 40 Mg/0.4 Ml Syringe SC 01/05/25 08:59 QDAY MARGAUX Ondansetron HCl 4 mg 12/21/24 23:04 Ondansetron Inj 2 Mg/Ml Inj 2 Ml IVP 01/20/25 23:03 Q6H PRN NAUSEA OR VOMITING Protocol Pantoprazole Sodium 40 mg 12/22/24 09:00 Pantoprazole 40 Mg Tablet PO 01/21/25 08:59 DAILY MARGAUX Sennosides 1 tab 12/21/24 23:04 Senna Tablet PO 01/20/25 23:03 QDAY PRN constipation Protocol Plan 84-year-old male with past medical history of hypertension was admitted to the hospital on 12/21/2024 due to new onset slurred speech and hypertensive emergency. #Acute right brainstem infarct, 14 mm #Slurred speech, improving #Dysmetria #generalized weakness Patient came in with complaints of slurred speech and generalized weakness per patient's family. 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 Teleneurology was consulted and recommended to admit the patient to allow permissive hypertension. This morning patient still has some dysmetria greater on the left side. Otherwise he did not have any weakness. Aspirin contraindicated as patient has swelling and itching when he takes it. Plan: Started patient on Plavix Continue Atorvastatin Will allow for permissive hypertension Pending echo Will continue with neurochecks every 4 to look for new neurological signs of possible edema Head of bed elevation Neurology consulted, pressure commendations Referred physical therapy and speech therapy #Hypertensive emergency #Hx of hypertension Patient getting a blood pressure of 209/89 and was as high as 252/103 Patient's blood pressure dropped after he was giving clonidine, hydralazine, metoprolol in the ED Will allow for permissive hypertension for now #Lactic acidosis Patient had a lactic acid of 2.9 Downtrending to 2.2 Will continue to monitor Disposition: Pendign neuro reccs and echo Diet: dysphagia pureed GI prophylaxis: protonix DVT prophylaxis: lovenox Code: Full Case disclosed with Attending Dr. Nader Barrera PGY1 Disclaimer: Even though this this note was dictated by speech recognition and even though it was carefully revised there may still be minor errors in repairer wood furniture due to voice recognition software.
--- NOTE | 2024-12-22 08:02 | PC.NURSE ---
Notified Dr. Jacobo, pt showed occasional pvc's, bigeminy.
--- NOTE | 2024-12-22 08:02 | EKG_ITS ---
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
--- NOTE | 2024-12-22 08:02 | PC.NURSE ---
Notified Dr. Jacobo, pt having freq PVCs, trigeminy.
[2024-12-22] MEDS: Magnesium Sulfate 2 GM Ivpb 2 GM/50 ML BAG IV (08:13)
[2024-12-22] MEDS: PANTOPRAZOLE 40 MG TABLET PO (08:13)
[2024-12-22] MEDS: ENOXAPARIN SOD INJ 40 MG/0.4 ML SYRINGE SC (08:14)
[2024-12-22 09:22] LABS: Lactate (Lactic Acid) 2.2 mMol/L (0.4-2.0)
[2024-12-22] MEDS: CLOPIDOGREL BISULFATE 75 MG TABLET PO (11:14)
[2024-12-22 12:10] LABS: Reflex Lactate? Y
[2024-12-22 13:11] LABS: Lactic Acid, 3 HR 2.2 mMol/L (0.4-2.0)
--- NOTE | 2024-12-22 20:23 | PD.NEUROPROG ---
Documentation for date of: 12/22/24 Subjective Subjective Interval history: Patient was seen in telemetry at the bedside with his family. No new symptoms reported. Denies any weakness paresthesias or headache or dizziness. Tolerating oral diet well. Exam - Neurology Vital Signs Temp Pulse Resp BP Pulse Ox O2 Del Method 97.3 F 71 18 181/92 H 96 Room Air 12/22/24 20:00 12/22/24 20:00 12/22/24 20:00 12/22/24 20:00 12/22/24 20:00 12/22/24 20:00 Narrative Exam GENERAL APPEARANCE: Well hydrated, well-nourished in no acute distress. HEENT: Normocephalic, atraumatic, extraocular movements intact. Pupils: Equal reacting to light and accommodation NECK: Supple, no JVD or bruits. CARDIOVASULAR: Heart: S1, S2 heard, regular without S3-S4 or murmur no rubs or gallops. LUNGS/CHEST: Clear to auscultation bilaterally. No rails, rhonchi, or wheezing. Normal inspection. ABDOMEN: Soft, nontender, with normal bowel sounds. No pulsatile masses. No rebound, rigidity, or guarding. Normal inspection and palpation. EXTREMITIES: Normal inspection and palpation. No edema, clubbing or cyanosis. SKIN: Warm and dry without rashes. Normal inspection. MUSCULOSKELETAL: No cervical, thoracic, lumbar or midline bony tenderness. Normal inspection. NEURO: Alert, awake and oriented x3. Cranial nerves: II through XII grossly intact. Speech and language: Normal with no dysarthria or dysphasia. Motor system: Tone and bulk: Normal: Strength: 5 out of 5 in all 4 extremities; No pronator drift noted. Deep tendon reflexes: 2+ bilaterally symmetrical. Plantar reflex: Downgoing bilaterally. Sensory system: Intact to all modalities of sensation bilaterally. Coordination: Intact to [id number]-[id number] and kvgl-[id number]-[id number] test bilaterally. No ataxia, no dysmetria, or dysdiadochokinesia noted. No intention tremors noted. Gait: Normal. No signs of meningeal irritation noted. PSYCHIATRIC: Normal mood and affect. Objective Labs 12/23/24 05:43 12/23/24 05:43 Labs: Laboratory Results - last 24 hr 12/21/24 12/21/24 12/21/24 17:35 20:27 23:41 WBC RBC Hgb Hct MCV MCH MCHC RDW Std Deviation Plt Count Neut % (Auto) Lymph % (Auto) [place] % (Auto) Eos % (Auto) Baso % (Auto) Neut # (Auto) Lymph # (Auto) [place] # (Auto) Eos # (Auto) Baso # (Auto) Immature Gran # (Auto) Absolute Nucleated RBC Immature Gran % Nucleated RBC % PT INR Sodium Potassium Chloride Carbon Dioxide Anion Gap BUN Creatinine Estim Creat Clear Calc eGFR BUN/Creatinine Ratio Glucose Estimated Ave Glu mg/dL Hemoglobin A1c Calculated Osmolality Lactic Acid 2.4 H 2.9 H Calcium Corrected Calcium Phosphorus Magnesium Total Bilirubin AST ALT Alkaline Phosphatase C-Reactive Prot, Quant < 0.5 Total Protein Albumin Globulin Albumin/Globulin Ratio Triglycerides Cholesterol LDL Cholesterol, Calc HDL Cholesterol Cholesterol/HDL Ratio Procalcitonin 0.06 TSH 2.07 Free T4 1.45 12/22/24 12/22/24 12/22/24 05:03 08:30 12:44 WBC 8.6 RBC 4.27 L Hgb 13.4 L Hct 39.1 L MCV 92 MCH 31.4 MCHC 34.3 RDW Std Deviation 45.2 H Plt Count 253 D Neut % (Auto) 54 Lymph % (Auto) 31 [place] % (Auto) 9 Eos % (Auto) 5 Baso % (Auto) 1 Neut # (Auto) 4.7 Lymph # (Auto) 2.7 [place] # (Auto) 0.8 Eos # (Auto) 0.4 Baso # (Auto) 0.1 Immature Gran # (Auto) 0.04 H Absolute Nucleated RBC 0.00 Immature Gran % 1 H Nucleated RBC % 0 PT 11.3 INR 1.0 Sodium 141 Potassium 3.9 Chloride 105 Carbon Dioxide 24.8 Anion Gap 11 BUN 11 Creatinine 0.8 Estim Creat Clear Calc 76.2 eGFR > 60 BUN/Creatinine Ratio 14 Glucose [address] Glu mg/dL 120 Hemoglobin A1c 5.8 Calculated Osmolality 280 Lactic Acid 2.2 H 2.2 H Calcium 8.8 Corrected Calcium 9.0 Phosphorus 3.6 Magnesium 1.8 Total Bilirubin 0.5 AST 21 ALT 16 Alkaline Phosphatase 56 C-Reactive Prot, Quant Total Protein 6.5 Albumin 3.8 D Globulin 2.7 Albumin/Globulin Ratio 1.4 Triglycerides 168 H Cholesterol 198 LDL Cholesterol, Calc 132 H HDL Cholesterol 32 L Cholesterol/HDL Ratio 6.2 Procalcitonin TSH 3.60 Free T4 Assessment & Plan Assessment and plan (1) Acute brainstem infarction: Status: Acute Assessment and plan: Continue with Plavix and statin. Follow-up rest of the workup. MRI brain showed acute pontine infarction Normal significant neurological deficit on exam (2) Hypertension: Status: Chronic Assessment and plan: Continue with aggressive pressure management from tomorrow (3) Obesity: Status: Chronic Assessment and plan: Advise lifestyle changes with diet and exercise. Will consider doing sleep study as an outpatient
[2024-12-22] MEDS: ATORVASTATIN CALCIUM 20 MG TABLET 80 MG PO (20:36)
[2024-12-23] VITALS (9 sets, daily range): BP systolic 152–179; BP diastolic 78–105; PULSE 58–87; RESP 16–21; TEMP 36.1–36.9; O2SAT 92–98; BMI 28.4
[2024-12-23 06:32] LABS: Basophils % (Auto) 0 % (0-2.5); Eosinophils # (Auto) 0.5 Thou/mm3 (0.0-0.5); Eosinophils % (Auto) 6 % (0-10); Hematocrit 39.3 % (41.0-53.0); Hemoglobin 13.6 g/dL (13.5-16.0); Immature Granulocytes % (Auto) 1 % (0-0); Immature Granulocytes Auto 0.04 Thou/mm3 (0.00-0.00); Lymphocytes # (Auto) 2.3 Thou/mm3 (1.0-4.8); Lymphocytes % (Auto) 31 % (10-50); Mean Corpuscular HGB Conc 34.6 g/dl (31.0-37.0); Mean Corpuscular Hemoglobin 32.2 pg (25.0-35.0); Mean Corpuscular Volume 93 fL (80-100); Monocytes # (Auto) 0.7 Thou/mm3 (0.0-0.8); Monocytes % (Auto) 9 % (0-12); Neutrophils % (Auto) 53 % (37-80); Nucleated Red Blood Cell % 0 /100 WBC (0); Platelet Count 248 Thou/mm3 (140-440); Red Blood Count 4.23 Miln/mm3 (4.50-5.90); White Blood Count 7.5 Thou/mm3 (3.8-10.6)
[2024-12-23 06:51] LABS: Alanine Aminotransferase 14 U/L (10-49); Albumin, Serum 3.8 gm/dL (3.4-4.8); Albumin/Globulin Ratio 1.4 (1.2-2.2); Alkaline Phosphatase 58 U/L (46-116); Anion Gap 11 (7-16); Aspartate Amino Transferase 18 U/L (0-34); BUN/Creatinine Ratio 13 Ratio (12-20); Bilirubin,Total 0.5 mg/dL (0.3-1.2); Blood Urea Nitrogen 12 mg/dL (9-23); Calcium 8.5 mg/dL (8.3-10.6); Calcium (Corrected) 8.7 mg/dL (8.5-10.1); Carbon Dioxide 25.9 mMol/L (20.0-31.0); Chloride 103 mMol/L (98-107); Creatinine (Component) 0.9 mg/dL (0.6-1.3); Estimated Creatinine Clearance 67.9 mL/min (>60); Globulin 2.7 gm/dL (2.3-3.5); Glucose 111 mg/dL (74-106); Osmolality,Calculated 280 (275-295); Potassium 3.7 mMol/L (3.4-5.1); Sodium 140 mMol/L (136-145); Total Protein 6.5 gm/dL (5.7-8.2); eGFR > 60 See Note
[2024-12-23] MEDS: ENOXAPARIN SOD INJ 40 MG/0.4 ML SYRINGE SC (08:30)
[2024-12-23] MEDS: CLOPIDOGREL BISULFATE 75 MG TABLET PO (08:30)
[2024-12-23] MEDS: PANTOPRAZOLE 40 MG TABLET PO (08:30)
--- NOTE | 2024-12-23 13:31 | ESDS_ITS ---
<Statement entered by Adri Doe MD - 12/28/24 12:36> I reviewed above note and agree with findings and plans. I have also personally examined the patient with medicine team and went over assessment and plan with medical team including dental intern and resident physician. Planned Discharge Date 12/23/24 DS: Providers Provider Date of admission: 12/21/24 23:04 Primary care physician: Physician No Primary/Family Admitting Provider: Justo Rivera MD Attending Provider on Admission: Anibal Gonzalez MD Consults: 12/21/24 23:11 Consult to Neurology / Tele-Neurology Routine Comment: stroke work up Consulting Provider: Anibal Gonzalez Referral Physical Therapy Routine Comment: Physician Instructions: Referral Speech Therapy Routine Comment: 12/22/24 08:15 Referral - [facility] Specialist Routine Comment: edvin teddy Gilliamda 12/22/24 19:02 Consult to Neurology / Tele-Neurology Routine Comment: Consulting Provider: Anibal Gonzalez Attending Provider on DC: Jamila Dexter MD Discharging Provider: Jamila Dexter MD DS: Diagnosis Problem List Completed Was Problem List Reviewed/Reconciled?: Yes Hospital Course Hospital Course Hospital course: 84-year-old male with past medical history of hypertension came to the ED with chief complaint of weakness since last 2 days with slurred speech as per the patient he has generalized weakness and fatigue since last 2 days notably in bilateral upper extremities. He also complained of slurred speech feeling like having tongue and he denied any history of similar symptoms in the past. He was admitted for stroke workup. Head CT was negative, 8 and neck CTA showed 90% stenosis of left internal carotid artery and 30% stenosis of right internal carotid artery. Impression MRI with MRA showed acute 14 mm right brainstem infract at pontine level as patient is contraindicated in this patient as he has swelling and itching when he takes it. Started the patient on Plavix and atorvastatin. Echo was done which showed Negative bubble study for any PFO or ASD. Consider FARHAN if high clinical riskof suspicion. Normal LV size and function. Estimated EF 55-60%. Grade I diastolic dysfunction. RV is normla in size and systolic function. Trace TR and MR. His labs are within normal limits. He is stable to discharge back home. Follow-up with Dr. Gonzalez 1 to 2 wee ks after discharge. he will need outpatient sleep studies. Continue all of the home medication Continue clopidogrel 75 Mg daily Continue atorvastatin 80 Mg daily You will need outpatient sleep studies Follow-up with Dr. Gonzalez 1 to 2 weeks after discharge Follow-up with PCP 1 to 2 weeks after discharge Come back to ED if symptoms worsens #Acute right brainstem infarct, 14 mm #Slurred speech, improving #Dysmetria #generalized weakness improved #Hypertensive emergency- resolved #Hx of hypertension #Lactic acidosis- resolved Case discussed with Dr Nader Dexter MD, PGY- 3 Time Spent with Patient Time attestation: Total time spent providing and/or coordinating discharge services: Time spent: Greater than 30 minutes Exam Vital Signs Temp Pulse Resp BP Pulse Ox O2 Del Method 97.6 F 74 18 152/84 H 97 Room Air 12/23/24 08:00 12/23/24 08:00 12/23/24 08:00 12/23/24 08:00 12/23/24 08:00 12/23/24 08:00 Discharge Plan Plan Patient Disposition: HOME (Self Care) Patient condition on transfer: Stable Prescriptions/Referrals Prescriptions/Med Rec: New atorvastatin 80 mg tablet 80 mg PO QDAY 30 Days Qty: 30 2RF clopidogrel 75 mg Tablet 75 mg PO QDAY 30 Days Qty: 30 1RF Continued atenolol 50 mg tablet 50 mg PO QDAY losartan 50 mg tablet 50 mg PO QDAY Referrals: No Primary/Family,Physician [Primary Care Provider] - Patient/Caregiver Discharge Instructions Discharge Activity: activity as tolerated Other Discharge Activity Instructions:: Continue all of the home medication Continue clopidogrel 75 Mg daily Continue atorvastatin 80 Mg daily You will need outpatient sleep studies Follow-up with Dr. Gonzalez 1 to 2 weeks after discharge Follow-up with PCP 1 to 2 weeks after discharge Come back to ED if symptoms worsens Print Language: Danish Stand Alone Forms: Sri Award Info., Patient Portal Info Letter Discharge Order Discharge Orders: Discharge (Routine); Ordered 12/23/24 Ordered By: Jamila Dexter Quality Discharge Quality Measures VTE prophylaxis
[2024-12-23] MEDS: LOSARTAN POTASSIUM 25 MG TABLET 50 MG PO (16:04)
[2024-12-23] MEDS: hydrALAZINE INJ 20 MG/ML VIAL 10 MG IVP (19:56)
--- NOTE | 2024-12-23 20:57 | PC.NURSE ---
Notified Dr Jacobo of blood pressure after medication given of 173/83 orders received to continue discharge home now and to instruction pt to take home medication and to follow up with primary md. This nurse did inform pt to take home meds and to follow with primary md.
--- NOTE | 2024-12-23 23:53 | PD.VPROG1 ---
Telemedicine visit statement This visit was conducted with the use of interactive audio and video telecommunications system that permits real time communication between the patient and the provider. Patient's verbal consent for virtual visit was obtained on 12/23/24 at 2353. Documentation for date of: 12/23/24 Subjective Subjective Interval history: Patient is in telemetry with his family at the bedside. No new symptoms reported. Slept well overnight tolerating oral diet well. Virtual exam Vital Signs Temp Pulse Resp BP Pulse Ox O2 Del Method 97.7 F 79 17 164/105 H 97 Room Air 12/23/24 20:00 12/23/24 20:00 12/23/24 20:00 12/23/24 20:00 12/23/24 20:00 12/23/24 20:00 Objective Labs 12/23/24 05:43 12/23/24 05:43 Labs: Laboratory Results - last 24 hr 12/23/24 05:43 WBC 7.5 RBC 4.23 L Hgb 13.6 Hct 39.3 L MCV 93 MCH 32.2 MCHC 34.6 RDW Std Deviation 46.0 H Plt Count 248 Neut % (Auto) 53 Lymph % (Auto) 31 [place] % (Auto) 9 Eos % (Auto) 6 Baso % (Auto) 0 Neut # (Auto) 4.0 Lymph # (Auto) 2.3 [place] # (Auto) 0.7 Eos # (Auto) 0.5 Baso # (Auto) 0.0 Immature Gran # (Auto) 0.04 H Absolute Nucleated RBC 0.00 Immature Gran % 1 H Nucleated RBC % 0 Sodium 140 Potassium 3.7 Chloride 103 Carbon Dioxide 25.9 Anion Gap 11 BUN 12 Creatinine 0.9 Estim Creat Clear Calc 67.9 eGFR > 60 BUN/Creatinine Ratio 13 Glucose 111 H Calculated Osmolality 280 Calcium 8.5 Corrected Calcium 8.7 Total Bilirubin 0.5 AST 18 ALT 14 Alkaline Phosphatase 58 Total Protein 6.5 Albumin 3.8 Globulin 2.7 Albumin/Globulin Ratio 1.4 Assessment & Plan Problem List (1) Acute brainstem infarction: Status: Acute Assessment and plan: No significant neurological deficit on exam. Continue with the blood pressure control, Plavix and statin. Stable for discharge we will see him back in 2 weeks (2) Hypertension: Status: Chronic Assessment and plan: Continue with blood pressure control, resume his outpatient meds including losartan and atenolol (3) Obesity: Status: Chronic Assessment and plan: Advised lifestyle changes with diet and exercise. Will consider doing sleep study as an outpatient to evaluate further.
== END 2024-12-23 21:20 | disposition home or self-care (01) | DRG 45 ==
LOC: SERX 22:39 → SERHOLD 23:41 → S2NX 12-22 02:44
PROVIDERS: Nurse Practitioner Primary Care; Admitting Provider Student in an Organized Health Care Education/Training Program; Emergency Provider Emergency Medicine; Visit Provider Psychiatry & Neurology Neurology
DX: I63.29 Cerebral infarction due to unspecified occlusion or stenosis of other precerebral arteries (principal); I16.1 Hypertensive emergency; I10 Essential (primary) hypertension; E87.20 Acidosis, unspecified; E78.5 Hyperlipidemia, unspecified; R27.8 Other lack of coordination; R47.81 Slurred speech; E66.9 Obesity, unspecified; I65.23 Occlusion and stenosis of bilateral carotid arteries; R29.701 NIHSS score 1; Z79.02 Long term (current) use of antithrombotics/antiplatelets; Z79.82 Long term (current) use of aspirin; Z79.899 Other long term (current) drug therapy; Z88.6 Allergy status to analgesic agent; Z68.28 Body mass index [BMI] 28.0-28.9, adult
CPT/HCPCS: 36415; 70450; 70496; 70498; 70544; 71045; 71250; 74176; 80053; 80061; 81001; 83036; 83605; 83735; 83880; 84100; 84145; 84439; 84443; 84484; 85025; 85610; 85652; 85730; 86140; 87400; 87811; 92526; 92610; 93005; 93306; 96374; 99291; A4649; J0360; J1650; J3475; J7040; J7120; Q9967; A9270

== ENCOUNTER 2024-12-24 13:18 | Inpatient (IN) | payer MEDICAID, SELFPAY ==
[2024-12-24] VITALS (11 sets, daily range): BP systolic 152–211; BP diastolic 54–97; PULSE 70–92; RESP 15–96; TEMP 36.6–36.7; O2SAT 93–99; BMI 27.6
--- NOTE | 2024-12-24 13:34 | EKG_ITS ---
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
--- NOTE | 2024-12-24 13:34 | XR_ITS ---
Examination: CTA carotids with intravenous contrast CTA brain, head with intravenous contrast. 2-D sagittal, coronal reconstructions. 3-D reconstructions. Exam date and time: December 24, 2024 1345 hours Comparison December 21, 2024 INDICATIONS: Stroke alert, brainstem infarct on brain MRI December 22, [address] brain scan CTDI: vol (mGy) 23.7 DLP: (mGycm) 197 Technique: Multiple CTA axial brain, head carotid images post intravenous contrast injection 22 cc, [id number]. 2-D sagittal, coronal reconstructions. 3-D reconstructions, 3-D post processing including vascular maximum intensity projection images. Low dose protocols were performed. One or more of the following dose reduction techniques were used; automated exposure control, adjustment of the mA and/or KV according to patient size, use of iterative reconstruction technique. 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
--- NOTE | 2024-12-24 13:34 | XR_ITS ---
Examination: CT brain head without contrast. 2-D sagittal coronal reconstructions Date and time of exam:December 24, 2024 at 1338 hours Comparison December 21, 2024 INDICATIONS: Stroke alert, onset focal neurologic deficit today CTDI: vol (mGy):50.8 DLP: (mGycm):986 Technique: Multiple CT axial sections of the brain have been obtained, 5 mm slice thickness. Contrast has not been administered. 2-D sagittal, coronal reconstructions have been obtained Low dose protocols were performed. One or more of the following dose reduction techniques were used; automated exposure control, adjustment of the mA and/or KV according to patient size, use of iterative reconstruction technique. Findings: No significant ventricular enlargement. Small old infarct left basal ganglia 10 mm infarct in the right brainstem pontine level Intra-axial or extra-axial hemorrhage density is not seen. No mass effect or midline shift Basal cisterns are not remarkable. Fourth ventricle is midline. Cranial vault intact. Impression: 10 mm nonhemorrhagic infarct in the right brainstem, pontine level, axial image 30, which may be acute
--- NOTE | 2024-12-24 13:44 | PD.EDNEURO ---
Neuro Symptoms Deficit-RME/HPI General Chief Complaint: Neuro Symptoms/Deficit Stated Complaint: STROKE LIKE SYMPTOMS Time Seen by Provider: 12/24/24 13:34 Source: patient and family Arrival date/time: 12/24/24 13:18 84-year-old male with a history of hyperlipidemia, hypertension presents to the emergency room with a chief complaint of left-sided numbness, worsening facial droop, and slurred speech x 3 hours. Patient was recently admitted for stroke on 12/21/2024 and was discharged yesterday. Mode of arrival: ambulatory Limitations: no limitations Related Data Home Medications ?Medication ?Instructions ?Recorded ?Confirmed atenolol 50 mg tablet 50 mg PO QDAY 12/22/24 12/22/24 losartan 50 mg tablet 50 mg PO QDAY 12/22/24 12/22/24 Previous Rx's ?Medication ?Instructions ?Recorded atorvastatin 80 mg tablet 80 mg PO QDAY 1 month #30 tabs 12/23/24 clopidogrel 75 mg tablet 75 mg PO QDAY 1 month #30 tabs 12/23/24 Allergies Allergy/AdvReac Type Severity Reaction Status Date / Time aspirin Allergy Severe Anaphylaxis Verified 12/21/24 23:24 Review of Systems Review of Systems Systems Reviewed: All systems reviewed, normal except as documented Constitutional Constitutional: Reports system reviewed and no additional complaints, except as documented, Denies fatigue, Denies fever(s), Denies headache(s) and Reports weakness Eyes Eyes: Reports system reviewed and no additional complaints, except as documented, Denies blurry vision and Denies change in vision ENT Ears, Nose, Mouth, and Throat: Reports system reviewed and no additional complaints, except as documented, Denies otalgia, Denies headache(s), Denies nasal congestion, Denies throat swelling and Denies vertigo Cardiovascular Cardiovascular: Reports system reviewed and no additional complaints, except as documented, Denies chest pain, Denies dyspnea and Denies dyspnea on exertion Respiratory Respiratory: Reports system reviewed and no additional complaints, except as documented, Denies chest congestion, Denies cough, Denies dyspnea, Denies dyspnea on exertion and Denies wheezing Gastrointestinal Gastrointestinal: Reports system reviewed and no additional complaints, except as documented, Denies abdominal pain, Denies cramping, Denies nausea and Denies vomiting Genitourinary Genitourinary: Reports system reviewed and no additional complaints, except as documented, Denies dysuria and Denies hematuria Musculoskeletal Musculoskeletal: Reports system reviewed and no additional complaints, except as documented, Reports abnormal gait, Denies back pain and Reports numbness Integumentary/Breasts Skin/Breast: Reports system reviewed and no additional complaints, except as documented and Denies wounds Neurologic Neurologic: Reports system reviewed and no additional complaints, except as documented, Reports abnormal gait, Reports abnormal speech, Denies confusion, Denies headache(s), Denies lack of coordination, Reports numbness, Reports paresthesias, Denies vertigo and Reports weakness Psychiatric Psychiatric: Reports system reviewed and no additional complaints, except as documented, Denies anxiety, Denies confusion, Denies depression, Denies paranoia, Denies suicidal ideation and Denies tactile hallucinations Endocrine Endocrine: Reports system reviewed and no additional complaints, except as documented and Denies fatigue Hematologic/Lymphatic Hematologic/Lymphatic: Reports system reviewed and no additional complaints, except as documented and Denies lymphadenopathy Allergic/Immunologic Allergic/Immunologic: Reports system reviewed and no additional complaints, except as documented, Denies throat swelling, Denies urticaria and Denies wheezing Past Medical History Past Medical History CARDIAC: Positive Hypertension and Hypotension; Negative Congestive Heart Failure RESPIRATORY: Negative Chronic Obstructive Pulmonary Disease (COPD) GENITOURINARY: Negative Renal Disease ENDOCRINE: Negative Diabetes Mellitus Type 1 or Diabetes Mellitus Type 2 Social History SMOKING STATUS: Never smoker ED Exam General Limitations: Present no limitations General appearance: Present alert and in no apparent distress Head Head exam: Present atraumatic Eye Eye exam: Present normal appearance, PERRL and EOMI ENT ENT exam: Present normal exam, normal oropharynx and mucous membranes moist Neck Neck exam: Present normal inspection, full ROM and trachea midline Chest Chest inspection: Present normal inspection and symmetric chest wall rise Respiratory Respiratory exam: Present normal lung sounds bilaterally Cardiovascular Cardiovascular exam: Present regular rate, normal rhythm and normal heart sounds Abdominal Exam Abdominal exam: Present soft and normal bowel sounds Extremities Exam Extremities exam: Present normal inspection and full ROM Back Exam Back exam: Present normal inspection and full ROM Neurological Exam Neurological exam: Present alert, oriented X3, CN II-XII intact and motor sensory deficit; Absent normal gait or reflexes normal Expanded Neurological Exam Patient oriented to: Present person, place and time Speech: Present expressive aphasia; Absent receptive aphasia Cranial nerves: Abnormal Left: EOM function (II, III, IV, ), facial sensation (V), facial palsy (VII) (left facial droop) and tongue deviation (XII) Cerebellar function: Abnormal Left: finger to nose and heel to watts Cerebellar function: Present ataxic gait Motor strength - LUE: 1 Motor strength - RUE: 11/26 Motor strength - LLE: 1 Motor strength - RLE: 5/ Sensory exam upper extremity: Normal: light touch, pin prick, temperature and 2 point discrimination Sensory exam lower extremity: Normal: light touch, pin prick, temperature and 2 point discrimination Coma scale eye opening: spontaneous Coma scale motor response: obeys commands Coma scale verbal response: oriented Coma scale total: 15 Psychiatric Psychiatric exam: Present normal affect and normal mood Skin Skin exam: Present warm, dry, intact and normal color Course Quality Measures none Orders Category Date Time Status Patient Condition Routine Admission 12/24/24 15:[address] in Observation Status Routine Admission 12/24/24 15:34 Active Bedside Blood Glucose NOW Care 12/24/24 13:34 Active COVID-19 Screening Questionnaire NOW Care 12/24/24 15:43 Active Baling Machine Operator NOW Care 12/24/24 13:34 Active Baling Machine Operator now Care 12/24/24 15:34 Active Continuous Pulse Oximetry NOW Care 12/24/24 13:34 Completed Continuous Pulse Oximetry QSHIFT Care 12/24/24 15:34 Active Decision to Admit X1 Care 12/24/24 15:43 Active EKG (ED ONLY) *Do not use* NOW Care 12/24/24 13:34 Completed Insert IV NOW Care 12/24/24 13:34 Active MRI Screening NOW Care 12/24/24 15:36 Active NIH Stroke Scale now Care 12/24/24 13:34 Active NPO NOW Care 12/24/24 13:34 Active NPO NOW Care 12/24/24 15:34 Active Neuro Check Q4H Care 12/24/24 15:35 Active Notify provider NEEDED Care 12/24/24 15:34 Active Nurse Swallow Screen x1 Care 12/24/24 13:34 Active Nurse Swallow Screen x1 Care 12/24/24 15:34 Completed Consult to Neurology / Tele-Neurology Routine Cons 12/24/24 13:34 Active Consult to Neurology / Tele-Neurology Routine Cons 12/24/24 15:37 Active Referral Physical Therapy Routine Cons 12/24/24 15:37 Active Referral Speech Therapy Routine Cons 12/24/24 15:37 Active Diet NPO (NOW) Diet 12/24/24 15:[address] angio stroke protocol Stat Exams 12/24/24 13:[address] stroke protocol Stat Exams 12/24/24 13:34 Completed EKG (ED Only) Stat Exams 12/24/24 13:34 Draft MR stroke protocol Stat Exams 12/24/24 15:36 Ordered Basic Metabolic Panel AM DRAW Lab 12/25/24 05:00 Ordered Basic Metabolic Panel AM DRAW Lab 12/26/24 05:00 Ordered Basic Metabolic Panel AM DRAW Lab 12/27/24 05:00 Ordered CBC AM DRAW Lab 12/25/24 05:00 Ordered CBC AM DRAW Lab 12/26/24 05:00 Ordered CBC AM DRAW Lab 12/27/24 05:00 Ordered CBC Stat Lab 12/24/24 13:35 Completed Comprehensive Metabolic Panel Stat Lab 12/24/24 13:35 Completed Drug Screen,Urine Stat Lab 12/24/24 16:01 Received Magnesium AM DRAW Lab 12/25/24 05:00 Ordered Magnesium Stat Lab 12/24/24 13:35 Completed Partial Thromboplastin Time Stat Lab 12/24/24 13:35 Completed Prothrombin Time with INR Stat Lab 12/24/24 13:35 Completed Troponin I Stat Lab 12/24/24 13:35 Completed Urinalysis Stat Lab 12/24/24 16:01 Received Urine Culture Stat Lab 12/24/24 16:01 Received Atorvastatin Calcium [Lipitor] Med 12/24/24 21:00 Active 80 mg PO HS Clopidogrel [Plavix] Med 12/24/24 15:45 Active 75 mg PO QDAY Labetalol IV [Trandate IV] Med 12/24/24 15:38 Discontinued 10 mg IVP Q10MIN PRN Labetalol IV [Trandate IV] Med 12/24/24 15:47 Active 10 mg IVP Q10MIN PRN Losartan [Cozaar] Med 12/24/24 16:00 Active 50 mg PO QDAY NIFEdipine [Procardia Xl] Med 12/25/24 09:00 Ordered 30 mg PO QDAY NIFEdipine [Procardia Xl] Med 12/24/24 16:09 Once 30 mg PO X1 ONE Ondansetron Inj [Zofran Inj] Med 12/24/24 15:34 Active 4 mg IVP Q4HR PRN atenoloL Med 12/25/24 09:00 Active 50 mg PO QAM Code Status Routine Oth 12/24/24 15:34 Ordered Oxygen Delivery NOW RT 12/24/24 13:34 Active Oxygen Delivery NOW RT 12/24/24 15:34 Active Vital Signs Vital signs: Vital Signs Temperature 97.8 F 12/24/24 13:25 Pulse Rate 92 12/24/24 13:25 Respiratory Rate 18 12/24/24 13:25 Blood Pressure 163/85 H 12/24/24 13:25 Pulse Oximetry (%) 97 12/24/24 13:25 Oxygen Delivery Method Room Air 12/24/24 13:25 O2 saturation 97% within normal limits Neuro Symptoms / Deficit MDM Narrative MDM Narrative:: 84-year-old male with a history of hyperlipidemia, hypertension presents to the emergency room with a chief complaint of left-sided numbness, worsening facial droop, and slurred speech x 3 hours. Patient was recently admitted for stroke on 12/21/2024 and was discharged yesterday. Patient came in as a stroke alert. Patient's last well-known was 3 hours ago. The patient is currently having some left-sided facial droop, slurred speech, and left-sided arm and leg numbness. Patient was admitted on 12/21/2024 and discharged yesterday. According to the daughter the patient was discharged yesterday and the symptoms were not as bad. Today the patient and the daughter states that the symptoms have progressively gotten worse and his slurred speech has returned. CT of the head and brain was completed and found a 10 mm nonhemorrhagic infarct in the right brainstem pontine level of [address] Ayers was consulted and his recommendations are to do an MRI to check for any new changes. Dr. Lucero believes this is an extension of his previous stroke. Dr. Shine cary the hospitalist on-call was consulted for admission. The patient was admitted for an MRI tomorrow morning. Patient data External records reviewed:: [facility] previous records Clinical information provided by:: patient Social determinants that could affect healthcare access:: none Patient has the following chronic illnesses:: No chronic illness How is presenting disease/condition affected by chronic disease/condition?: no chronic disease Evaluation data The following diagnostics were reviewed and interpreted by me:: lab results and radiology exam(s) Lab and/or radiology exams considered but not ordered:: Labs and radiology exams considered and ordered Interpretation Summary: CT head and brain-Findings: No significant ventricular enlargement. Small old infarct left basal ganglia 10 mm infarct in the right brainstem pontine level Intra-axial or extra-axial hemorrhage density is not seen. No mass effect or midline shift Basal cisterns are not remarkable. Fourth ventricle is midline. Cranial vault intact. Impression: 10 mm nonhemorrhagic infarct in the right brainstem, pontine level, axial image 30, which may be acute Head neck CTA-findings: 40% stenosis right carotid bifurcation origin right internal carotid artery 90% stenosis origin left internal carotid artery Dominant left vertebral artery with no critical stenoses No cerebral large vessel arterial occlusions or thrombus IMPRESSION: 40% stenosis right carotid bifurcation origin right internal debris 90% stenosis origin left internal carotid artery No cerebral large vessel arterial occlusions or thrombus Medications / Prescriptions Medications or Prescriptions considered but not ordered:: Medication given Medication administrations:: Medication Administration History Atenolol (Atenolol 25 Mg Tablet) 50 mg PO QAM [facility] Stop: 01/24/25 08:59 Atorvastatin Calcium (Atorvastatin Calcium 20 Mg Tablet) 80 mg PO [facility] Stop: 01/23/25 20:59 Clopidogrel Bisulfate (Clopidogrel Bisulfate 75 Mg Tablet) 75 mg PO QDAY [facility] Stop: 01/23/25 15:44 Last Admin: 12/24/24 16:15 Dose: Not Given Labetalol HCl (Labetalol Inj 5 Mg/Ml Vial 20 Ml) 10 mg IVP Q10MIN PRN PRN Reason: Hypertension Stop: 01/23/25 15:44 Losartan Potassium (Losartan Potassium 25 Mg Tablet) 50 mg PO QDAY [facility] Stop: 01/23/25 15:59 Last Admin: 12/24/24 16:15 Dose: Not Given Nifedipine (Nifedipine Xl 30 Mg Tabcr) 30 mg PO QDAY [facility] Stop: 01/24/25 08:59 Ondansetron HCl (Ondansetron Inj 2 Mg/Ml Inj 2 Ml) 4 mg IVP Q4HR PRN PRN Reason: NAUSEA OR VOMITING Stop: 01/23/25 15:33 Discontinued Medications Labetalol HCl (Labetalol Inj 5 Mg/Ml Vial 20 Ml) 10 mg IVP Q10MIN PRN PRN Reason: Hypertension Stop: 01/23/25 15:44 Nifedipine (Nifedipine Xl 30 Mg Tabcr) 30 mg PO X1 ONE Stop: 12/24/24 16:10 Medication given Consultations Consultation(s) initiated? (list below): Yes Consultation #1 (Physician, Specialty, Details): Dr. Ayers teleneurologist Time: 14:20 Diagnosis Neuro Differential Diagnosis: subarachnoid hemorrhage, cerebrovascular accident and transient cerebral ischemia Most likely diagnosis given after review of the tests above:: Cerebrovascular accident Admission Indicated Admission indicated?: indicated Admission Request Was there a request for admission?: Yes Admission Attestation Admission request attestation: Discussed case with [] from Hospitalist service regarding admission. Discussed patients ED course, exam findings, labs, and radiology results. The Hospitalist [agrees,declines] to accept the patient for admission. Disposition Plan Disposition Plan: Admit Discharge Plan Plan Patient Disposition: Admit Acute Care w/in Hospital Discharge Disposition comment: Stable Health Concerns: ? Recommend obtaining sleep study outpatient after discharge ? Continue taking all other home medications as prescribed ? Follow-up with PCP within 1-2 weeks of discharge ? If you do not have a PCP, you can follow-up at the [facility] (you can call [phone] to make an appointment) ? If you wish to follow-up with Dr. Shin, schedule appointment on Tuesday afternoons ? Return to ED if symptoms worsen or recur Prescriptions/Referrals Prescriptions/Med Rec: No Action atenolol 50 mg tablet 50 mg PO QDAY losartan 50 mg tablet 50 mg PO QDAY atorvastatin 80 mg tablet 80 mg PO QDAY 30 Days Qty: 30 2RF clopidogrel 75 mg Tablet 75 mg PO QDAY 30 Days Qty: 30 1RF Referrals: Loco Dougherty MD [Primary Care Provider] - In 1 week Problem List Clinical Impression: Acute brainstem infarction, Cerebrovascular accident Patient/Caregiver Discharge Instructions Print Language: Indonesian Stand Alone Forms: Sri Award Info., Patient Portal Info Letter
[2024-12-24 13:46] LABS: Basophils # (Auto) 0.1 Thou/mm3 (0.0-0.2); Basophils % (Auto) 1 % (0-2.5); Eosinophils # (Auto) 0.3 Thou/mm3 (0.0-0.5); Eosinophils % (Auto) 3 % (0-10); Hematocrit 40.3 % (41.0-53.0); Hemoglobin 14.3 g/dL (13.5-16.0); Immature Granulocytes % (Auto) 1 % (0-0); Immature Granulocytes Auto 0.04 Thou/mm3 (0.00-0.00); Lymphocytes # (Auto) 2.6 Thou/mm3 (1.0-4.8); Lymphocytes % (Auto) 30 % (10-50); Mean Corpuscular HGB Conc 35.5 g/dl (31.0-37.0); Mean Corpuscular Hemoglobin 31.8 pg (25.0-35.0); Mean Corpuscular Volume 90 fL (80-100); Monocytes # (Auto) 0.8 Thou/mm3 (0.0-0.8); Monocytes % (Auto) 9 % (0-12); Neutrophils # (Auto) 4.9 Thou/mm3 (1.8-7.7); Neutrophils % (Auto) 56 % (37-80); Nucleated Red Blood Cell % 0 /100 WBC (0); Platelet Count 356 Thou/mm3 (140-440); Red Blood Count 4.49 Miln/mm3 (4.50-5.90); White Blood Count 8.6 Thou/mm3 (3.8-10.6)
[2024-12-24 14:01] LABS: Partial Thromboplastin Time 27.1 Seconds (22.0-36.0)
[2024-12-24 14:08] LABS: Alanine Aminotransferase 17 U/L (10-49); Albumin, Serum 4.1 gm/dL (3.4-4.8); Albumin/Globulin Ratio 1.4 (1.2-2.2); Alkaline Phosphatase 65 U/L (46-116); Anion Gap 12 (7-16); Aspartate Amino Transferase 22 U/L (0-34); BUN/Creatinine Ratio 14 Ratio (12-20); Bilirubin,Total 0.4 mg/dL (0.3-1.2); Blood Urea Nitrogen 14 mg/dL (9-23); Calcium 8.8 mg/dL (8.3-10.6); Calcium (Corrected) 8.8 mg/dL (8.5-10.1); Chloride 104 mMol/L (98-107); Glucose 170 mg/dL (74-106); Magnesium 1.9 mg/dL (1.6-2.6); Osmolality,Calculated 280 (275-295); Potassium 4.1 mMol/L (3.4-5.1); Sodium 138 mMol/L (136-145); Total Protein 7.1 gm/dL (5.7-8.2); Troponin I < 0.020 ng/mL (0.0-0.045); eGFR > 60 See Note
--- NOTE | 2024-12-24 14:13 | ESCONSULT_ITS ---
Tele Neuro Consultation Consultation Date 12/24/24 Most Recent Vital Signs Last Vital Signs Temp 97.8 F 12/24/24 13:25 Pulse 92 12/24/24 13:25 Resp 18 12/24/24 13:25 BP 163/85 H 12/24/24 13:25 Pulse Ox 97 12/24/24 13:25 O2 Del Method Room Air 12/24/24 13:25 Laboratory-Coagulation Panel PT 11.0 Seconds (9.0-12.2) 12/24/24 13:35 INR 1.0 (0.9-1.3) 12/24/24 13:35 APTT 27.1 Seconds (22.0-36.0) 12/24/24 13:35 Consultation Narrative [facility] Patient Name:???Tolu Acharya Date of :???1940 Date of Service:???12/24/2024 13:31:56 Diagnosis:?I63.89 - Cerebrovascular accident (CVA) due to other mechanism [facility] Impression: ?Patient is a 84-year-old male with a past medical history significant for 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 ? ?Patient presents for worsening left-sided numbness and weakness involving the extremities and the tongue, symptoms have been waxing and waning since his recent acute ischemic infarct which was evidenced during his last hospital admission and discharged on 12/23. Currently he is on Plavix. ?On exam there is mild facial droop, left-sided upper and lower extremity weakness with sensation changes. ?Head CT shows the right pontine hypodensity, subacute infarct. ? ?-Most likely stroke evaluation of the right pontine acute ischemia versus recrudescence versus new ischemic event. ?- Not IV thrombolytic candidate due to recent stroke. ?- Continue Plavix at this time. ?- Repeat MRI brain without contrast to rule out any new infarcts. ?- If MRI brain is negative, patient can be discharged from a stroke standpoint. In that case he is mostly going through the evolution of the stroke, continue medications as per previous plan, can follow-up with outpatient neurology. Our recommendations are outlined below. Recommendations: ? Initiate Clopidogrel 75 mg daily ?-Most likely stroke evaluation of the right pontine acute ischemia versus recrudescence versus new ischemic event. ?- Not IV thrombolytic candidate due to recent stroke. ?- Continue Plavix at this time. ?- Repeat MRI brain without contrast to rule out any new infarcts. ?- If MRI brain is negative, patient can be discharged from a stroke standpoint. In that case he is mostly going through the evolution of the stroke, continue medications as per previous plan, can follow-up with outpatient neurology. Sign Out: ? Discussed with Emergency Department Provider Advanced Imaging:Advanced imaging has been ordered. Results pending. Metrics: Last Known Well: Unknown Dispatch Time: 12/24/2024 13:31:56 Arrival Time: 12/24/2024 13:44:18 Initial Response Time: 12/24/2024 13:44:16Symptoms: Left sided weakness. Initial patient interaction: 12/24/2024 13:52:10 NIHSS Assessment Completed: 12/24/2024 13:57:22Patient is not a candidate for Thrombolytic. Thrombolytic Medical Decision: 12/24/2024 14:06:48Patient was not deemed candidate for Thrombolytic because of following reasons: Significant head trauma or stroke in previous [address] Head: I personally reviewed all the CT images that were available to me and it showed: recent R pontine infarct. Primary Provider Notified of Diagnostic Impression and Management Plan on: 12/24/2024 14:11:38 History of Present Illness:Patient is a 84 year old Male. Patient was brought by private transportation with symptoms of Left sided weakness. Patient is a 84-year-old male with a past medical history significant for recent right-sided pontine stroke with left-sided numbness and weakness, hypertension, hyperlipidemia is being evaluated for concerns of worsening left- sided numbness and weakness. Patient was recently discharged from the hospital yesterday at around 12/23. He was initially admitted for weakness, MRI was obtained which showed a right pontine acute ischemic infarct. Currently patient states that his symptoms have been waxing and waning and his gait is different today. He has also noticed that his left-sided weakness has worsened today. He notices that his tongue numbness which started 2 days back is also got worsened. He takes all his medications which were prescribed. ? Past Medical History: ?Hypertension ?Hyperlipidemia ?Stroke Medications: No Anticoagulant use? Antiplatelet use:?Yes?Plavix Reviewed EMR for current medications Allergies:? Description:?As per chart Social History: Smoking: No Family History: There is no family history of premature cerebrovascular disease pertinent to this consultation ROS : 14 Points Review of Systems was performed and was negative except mentioned in HPI. Past Surgical History: There Is No Surgical History Contributory To Today?s Visit ? Examination: BP(163/85),?Pulse(92), 1A: Level of Consciousness - Alert; keenly responsive?+ 0 1B: Ask Month and Age - Both Questions Right?+ 0 1C: Blink Eyes & Squeeze Hands - Performs Both Tasks?+ 0 2: Test Horizontal Extraocular Movements - Normal?+ 0 3: Test Visual Pritchard - No Visual Loss?+ 0 4: Test Facial Palsy (Use Grimace if Obtunded) - Minor paralysis (flat nasolabial fold, smile asymmetry)?+ 1 5A: Test Left Arm Motor Drift - No Drift for 10 Seconds?+ 0 5B: Test Right Arm Motor Drift - Drift, but doesn't hit bed?+ 1 6A: Test Left Leg Motor Drift - No Drift for 5 Seconds?+ 0 6B: Test Right Leg Motor Drift - Drift, but doesn't hit bed?+ 1 7: Test Limb Ataxia (FNF/Heel-Shipley) - No Ataxia?+ 0 8: Test Sensation - Mild-Moderate Loss: Less Sharp/More Dull?+ 1 9: Test Language/Aphasia - Normal; No aphasia?+ 0 10: Test Dysarthria - Normal?+ 0 11: Test Extinction/Inattention - No abnormality?+ 0 NIHSS Score:?4 Pre-Morbid Modified Johnston Scale:Unable to assess Spoke with :?ED Provider This consult was conducted in real time using interactive audio and video technology. Patient was informed of the technology being used for this visit and agreed to proceed. Patient located in hospital and provider located at home/office setting. Patient is being evaluated for possible acute neurologic impairment and high probability of imminent or life-threatening deterioration. I spent total of 45 minutes providing care to this patient, including time for face to face visit via telemedicine, review of medical records, imaging studies and discussion of findings with providers, the patient and/or family. Dr Brigido Ayers [facility] For Inpatient follow-up with [facility] physician please call [facility] at . As we are not an outpatient service for any post hospital discharge needs please contact the hospital for assistance. If you have any questions for the [facility] physicians or need to reconsult for clinical or diagnostic changes please contact us via [facility] at . ?
--- NOTE | 2024-12-24 15:41 | ESHP_ITS ---
<Statement entered by Adri Doe MD - 12/28/24 14:49> I reviewed above note and agree with findings and plans. I have also personally examined the patient with medicine team and went over assessment and plan with medical team including buying intern and resident physician. 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 Echo was negative for PFO or ASD. He was eventually discharged with Plavix only due to allergy to aspirin (swelling, itching). Given recurrent symptoms, stroke alert was called in the ED and per teleneurology recommendations will observe patient overnight and order MRI to evaluate for evolution of previous stroke vs new ischemic event. Otherwise, also spoke to in-house neurology who recommended strict blood pressure control to reduce risk of hemorrhagic conversion but to continue with plavix. In ED, CT head showed no acute intracranial pathologies but did show previously noted right sided pontine infarct and CTA head/neck showed 90% stenosis of origin of left ICA and 40% stenosis of right carotid bifurcation but no LVO's or thrombus. BP noted to be elevated in 170s to 180s and given nifedipine 30 mg x 1 and started labetalol 10 mg IV push as needed for BP greater than 140. PMH: Hypertension, right-sided pontine infarct PSH: None SH: Denies alcohol, tobacco, illicit drug use. Allergies:?aspirin Medications: Losartan, atenolol, atorvastatin, clopidogrel Review of Systems Review of Systems Systems Reviewed: All systems reviewed, normal except as documented Exam Vital Signs Temp Pulse Resp BP Pulse Ox O2 Del Method 97.9 F 75 18 176/96 H 96 Room Air 12/24/24 14:41 12/24/24 14:41 12/24/24 14:41 12/24/24 14:41 12/24/24 14:41 12/24/24 14:41 Narrative Exam General: AOx3, no acute distress, able to speak full sentences HEENT: NC/AT, mucous membranes moist, bilateral sclera anicteric Cardiovascular: regular rate and rhythm, S1/S2 present, no murmurs appreciated Pulmonary: clear to auscultation bilaterally, no rales/rhonchi/wheezes Abdominal: soft, non-tender, non-distended, no rebound/guarding, normal bowel sounds present Musculoskeletal: normal ROM, no peripheral edema Skin: warm and dry, intact, no rashes Neuro: - CN II-XII grossly intact, patient states that it is difficult to smile - Strength 5/5 bilaterally in upper and lower extremities - No paresthesias Results: Labs 12/24/24 13:35 12/24/24 13:35 Labs: Short CBC 12/24/24 Range/Units 13:35 WBC 8.6 (3.8-10.6) Thou/mm3 Hgb 14.3 (13.5-16.0) g/dL Hct 40.3 L (41.0-53.0) % Plt Count 356 D (140-440) Thou/mm3 BMP 12/24/24 13:35 Sodium 138 Potassium 4.1 Chloride 104 Carbon Dioxide 22.0 BUN 14 Creatinine 1.0 Glucose 170 H D Calcium 8.8 Cardiac Enzymes 12/24/24 Range/Units 13:35 Troponin I < 0.020 (0.0-0.045) ng/mL Liver Function 12/24/24 Range/Units 13:35 Total Bilirubin 0.4 (0.3-1.2) mg/dL AST 22 (0-34) U/L ALT 17 (10-49) U/L Alkaline Phosphatase 65 (46-116) U/L Albumin 4.1 (3.4-4.8) gm/dL Quality Measures Quality Measures none Advance care planning discussed with:: patient and child Medications Home Medications and Allergies Home Medications ?Medication ?Instructions ?Recorded ?Confirmed ?Type atenolol 50 mg tablet 50 mg PO QDAY 12/22/2412/22 History losartan 50 mg tablet 50 mg PO QDAY 12/22/2412/22 History Allergies Allergy/AdvReac Type Severity Reaction Status Date / Time aspirin Allergy Severe Anaphylaxis Verified 12/21/24 23:24 Visit Medications Atorvastatin Calcium (Atorvastatin Calcium 20 Mg Tablet) 80 mg PO HS MARGAUX Stop: 01/23/25 20:59 Clopidogrel Bisulfate (Clopidogrel Bisulfate 75 Mg Tablet) 75 mg PO QDAY MARGAUX Stop: 01/23/25 15:44 Ondansetron HCl (Ondansetron Inj 2 Mg/Ml Inj 2 Ml) 4 mg IVP Q4HR PRN PRN Reason: NAUSEA OR VOMITING Stop: 01/23/25 15:33 Assessment & Plan Plan Tolu Arce is an 84-year-old male with a past medical history of hypertension, hyperlipidemia, and 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 #? New ischemic stroke #History of acute right brainstem infarct, 14 mm #Slurred speech Recent right-sided pontine stroke now presenting with waxing and waning left- sided weakness after being discharged with slurred speech and facial droop. Also presents with elevated blood pressure and states that he took his medications later than usual today. Tele-neurology recommended obtaining MRI to re-evaluate for possible evolution of pre-existing stroke vs new ischemic event. ? In-house neurology following, appreciate recommendations ? Pending MRI ? N.p.o. now, pending speech evaluation ? Physical therapy ordered ? Maintenance LR at 75 cc/h ? Plavix 75 mg p.o. daily ? Atorvastatin 80 mg p.o. daily #Hypertensive urgency versus emergency #History of hypertension Per in-house neurology recommendations, recommend strict blood pressure control to decrease risk of hemorrhagic conversion. ? Losartan 50 mg p.o. daily ? Atenolol 50 mg p.o. daily ? Nifedipine 30 mg p.o. daily ? Labetalol 10 mg IVP prn for BP > 140 #Hyperlipidemia ? Atorvastatin as above Hospital management: Disposition: Pending MRI Fluids: LR at 70 cc/h Diet: N.p.o., pending speech evaluation Lines: PIV DVT prophylaxis: SCDs CODE STATUS: full code ----- Plan discussed with attending physician Dr. Nader Shin MD PGY-1 Internal Medicine
[2024-12-24 16:05] LABS: Collection Type, Urine Clean Catch
[2024-12-24] MEDS: NIFEdipine XL 30 MG TABCR PO (16:42)
[2024-12-24] MEDS: RINGERS LACTATED 1000 ML 1,000 ML 75 ML IV (16:46)
--- NOTE | 2024-12-24 17:08 | PC.NURSE ---
provider informed about mri not working at the moment and will most likely be done tomorrow
[2024-12-24] MEDS: LABETALOL INJ 5 MG/ML VIAL 20 ML 10 MG IVP ×2 (17:24→19:18)
[2024-12-24 18:01] LABS: Amphetamine/Methamp Scrn,U Negative (Negative); Barbiturate Screen,Urine Negative (Negative); Benzodiazepines Screen,Urine Negative (Negative); Benzoylecgonine Screen, Ur Negative (Negative); Fentanyl Screen,Urine Negative (Negative); Opiate Screen,Urine Negative (Negative); THC Screen,Urine Negative (Negative)
[2024-12-24 18:17] LABS: Bilirubin,Urine Negative (Negative); Blood,Urine Negative (Negative); Clarity,Urine Clear (Clear/Hazy); Color,Urine Lt-Yellow (Lt Yel-Yel); Glucose, Urine Negative (Negative); Ketones,Urine Negative (Negative); Leukocyte Esterase,Urine Negative (Negative); Nitrite,Urine Negative (Negative); PH,Urine 7.5 (5.0-7.0); Protein,Urine Negative (Neg - Trace); RBC,Urine 1 /hpf (0-3); Squamous Epithelial Cell,Urine < 1 /hpf (0-5); Urobilinogen,Urine Negative mg/dL (0.0-1.0); WBC,Urine 1 /hpf (0-5)
[2024-12-24 18:24] LABS: Specific Gravity,Urine > 1.035 (1.001-1.035)
[2024-12-24] MEDS: hydrALAZINE INJ 20 MG/ML VIAL 10 MG IVP (19:49)
[2024-12-24] MEDS: ATORVASTATIN CALCIUM 20 MG TABLET 80 MG PO (21:18)
--- NOTE | 2024-12-24 22:07 | VVPN_ITS ---
Telemedicine visit statement This visit was conducted with the use of interactive audio and video telecommunications system that permits real time communication between the patient and the provider. Patient's verbal consent for virtual visit was obtained on 12/24/24 at 2207. Documentation for date of: 12/24/24 Subjective Subjective Interval history: Patient is in telemetry with his family at the bedside. No new symptoms reported. Slept well overnight tolerating oral diet well. Virtual exam Vital Signs Temp Pulse Resp BP Pulse Ox O2 Del Method 97.9 F 87 18 152/54 H 97 Room Air 12/24/24 18:00 12/24/24 20:50 12/24/24 20:50 12/24/24 20:50 12/24/24 20:50 12/24/24 20:50 Objective Labs 12/26/24 05:15 12/26/24 05:15 Labs: Laboratory Results - last 24 hr 12/24/24 12/24/24 13:35 16:01 WBC 8.6 RBC 4.49 L Hgb 14.3 Hct 40.3 L MCV 90 MCH 31.8 MCHC 35.5 RDW Std Deviation 44.0 H Plt Count 356 D Neut % (Auto) 56 Lymph % (Auto) 30 [place] % (Auto) 9 Eos % (Auto) 3 Baso % (Auto) 1 Neut # (Auto) 4.9 Lymph # (Auto) 2.6 [place] # (Auto) 0.8 Eos # (Auto) 0.3 Baso # (Auto) 0.1 Immature Gran # (Auto) 0.04 H Absolute Nucleated RBC 0.00 Immature Gran % 1 H Nucleated RBC % 0 PT 11.0 INR 1.0 APTT 27.1 Sodium 138 Potassium 4.1 Chloride 104 Carbon Dioxide 22.0 Anion Gap 12 BUN 14 Creatinine 1.0 Estim Creat Clear Calc Not Performed. eGFR > 60 BUN/Creatinine Ratio 14 Glucose 170 H D Calculated Osmolality 280 Calcium 8.8 Corrected Calcium 8.8 Magnesium 1.9 Total Bilirubin 0.4 AST 22 ALT 17 Alkaline Phosphatase 65 Troponin I < 0.020 Total Protein 7.1 Albumin 4.1 Globulin 3.0 Albumin/Globulin Ratio 1.4 Ur Collection Type Clean Catch Urine Color Lt-Yellow Urine Clarity Clear Urine pH 7.5 H Ur Specific [place] > 1.035 H Urine Protein Negative Urine Glucose (UA) Negative Urine Ketones Negative Urine Blood Negative Urine Nitrite Negative Urine Bilirubin Negative Urine Urobilinogen (Auto) Negative Ur Leukocyte Esterase Negative Urine RBC 1 Urine WBC 1 Ur Squamous Epith Cells < 1 Urine Bacteria None Urine Opiates Screen Negative Urine Fentanyl Screen Negative Ur Barbiturates Screen Negative U Amphetamin/Meth Scrn Negative U Benzodiazepines Scrn Negative U Cocaine Metab Screen Negative U Marijuana (THC) Screen Negative Assessment & Plan Problem List (1) Acute brainstem infarction: Status: Acute Assessment and plan: No significant neurological deficit on exam. Continue with the blood pressure control, Plavix and statin. Stable for discharge we will see him back in 2 weeks (2) Hypertension: Status: Chronic Assessment and plan: Continue with blood pressure control, resume his outpatient meds including losartan and atenolol (3) Obesity: Status: Chronic Assessment and plan: Advised lifestyle changes with diet and exercise. Will consider doing sleep study as an outpatient to evaluate further.
[2024-12-25] VITALS (16 sets, daily range): BP systolic 130–160; BP diastolic 67–80; PULSE 68–89; RESP 15–95; TEMP 36.1–36.4; O2SAT 95–97
--- NOTE | 2024-12-25 | XR_ITS ---
Examinations: MRI Brain without intravenous contrast. MRA brain without intravenous contrast. MRA carotids without intravenous contrast 3-D vascular reconstructions Date and time of exam: December 25, 2024, 0842 hours INDICATIONS: Stroke alert December 24, 2024, onset focal neurologic deficit, 14 mm right brainstem infarct on brain MRI December 22, 2024 Technique: Multiple axial and sagittal images of the brain have been obtained MRA brain carotid images without contrast obtained, including 3-D postprocessing, vascular maximum intensity projection images Findings: [place] is not enlarged. The optic chiasm and infundibular stalk are not remarkable. Prepontine and interpeduncular cisterns are not enlarged. No localized enlargement of the medulla or sona. Fourth ventricle and cerebellar tonsils normal in position. Subacute hemorrhage is not seen. Fourth ventricle is midline. Mass in the cerebellopontine angle region is not evident. 7th and 8th nerve complexes exhibits symmetry. Globes are symmetrical with no retro-orbital mass. Increased white matter signal moderate Diffusion-weighted images demonstrate larger infarct in the right brainstem pontine level measuring 17 x 7 mm compared to 14 x 5 mm on the prior study Mass-effect upon the ventricular system is not identified. MRA carotid images no gross carotid stenoses. MRA brain images moderate cerebral arterial irregularity Impression: Right brainstem infarct, pontine level, measures 17 x 7 mm compared to 14 x 5 mm on brain MRI December 22, 2024
[2024-12-25] MEDS: RINGERS LACTATED 1000 ML 1,000 ML 75 ML IV (04:52)
[2024-12-25 05:45] LABS: Basophils # (Auto) 0.1 Thou/mm3 (0.0-0.2); Basophils % (Auto) 1 % (0-2.5); Eosinophils # (Auto) 0.5 Thou/mm3 (0.0-0.5); Eosinophils % (Auto) 6 % (0-10); Hematocrit 38.8 % (41.0-53.0); Hemoglobin 13.3 g/dL (13.5-16.0); Immature Granulocytes % (Auto) 1 % (0-0); Immature Granulocytes Auto 0.05 Thou/mm3 (0.00-0.00); Lymphocytes # (Auto) 2.5 Thou/mm3 (1.0-4.8); Lymphocytes % (Auto) 30 % (10-50); Mean Corpuscular HGB Conc 34.3 g/dl (31.0-37.0); Mean Corpuscular Hemoglobin 31.8 pg (25.0-35.0); Mean Corpuscular Volume 93 fL (80-100); Monocytes # (Auto) 0.8 Thou/mm3 (0.0-0.8); Monocytes % (Auto) 10 % (0-12); Neutrophils # (Auto) 4.4 Thou/mm3 (1.8-7.7); Neutrophils % (Auto) 53 % (37-80); Nucleated Red Blood Cell % 0 /100 WBC (0); Platelet Count 223 Thou/mm3 (140-440); RDW Standard Deviation 46.5 fL (35.1-43.9); Red Blood Count 4.18 Miln/mm3 (4.50-5.90); White Blood Count 8.4 Thou/mm3 (3.8-10.6)
[2024-12-25 05:55] LABS: Anion Gap 12 (7-16); BUN/Creatinine Ratio 16 Ratio (12-20); Blood Urea Nitrogen 13 mg/dL (9-23); Calcium 8.6 mg/dL (8.3-10.6); Carbon Dioxide 25.4 mMol/L (20.0-31.0); Chloride 104 mMol/L (98-107); Creatinine (Component) 0.8 mg/dL (0.6-1.3); Estimated Creatinine Clearance 75.4 mL/min (>60); Glucose 111 mg/dL (74-106); Magnesium 1.8 mg/dL (1.6-2.6); Osmolality,Calculated 282 (275-295); Potassium 3.7 mMol/L (3.4-5.1); Sodium 141 mMol/L (136-145); eGFR > 60 See Note
[2024-12-25] MEDS: LOSARTAN POTASSIUM 25 MG TABLET 50 MG PO (08:36)
[2024-12-25] MEDS: CLOPIDOGREL BISULFATE 75 MG TABLET PO (08:37)
[2024-12-25] MEDS: NIFEdipine XL 30 MG TABCR PO (08:37)
[2024-12-25] MEDS: atenoloL 25 MG TABLET 50 MG PO (08:37)
--- NOTE | 2024-12-25 10:48 | PCS.ST ---
Swallow Evaluation completed. See report for details. Recommend Dysphagia 3/regular liquids. No s/s of aspiration.
--- NOTE | 2024-12-25 10:51 | PC.SS ---
PERSONAL CLOTHING LAUNDRY AIDE conducted bedside contact with the patient to conduct initial assessment and to discuss discharge planning. ?Present at bedside with patient was daughter, Ananya Short .? Information obtained from the patient?s daughter.? PERSONAL CLOTHING LAUNDRY AIDE utilized oxidation operator services to assist with discussion.? Patient resides at home with daughter, Seda Short .? Patient utilizes a walker to assist with ambulation.? Patient does not utilize home oxygen.? Patient requires assistance with the completion of ADL?s.? Family provides assistance.? Patient?s PCP is Dr. Dougherty [facility].? Patient does not possess any specialty providers.? Patient utilizes [facility] for medication services.? Plan is for the patient to return home at the time of discharge.? Family will provide transportation on behalf of the patient. ?No further discharge needs identified by the patient.? No further intervention required at this time, social science instructor will be available to address any further concerns.? Next of Kin: Ananya Ybarrais D/C Plan: Home
--- NOTE | 2024-12-25 11:19 | ESPR_ITS ---
<Statement entered by Adri Doe MD - 12/30/24 09:32> I reviewed above note and agree with findings and plans. I have also personally examined the patient with medicine team and went over assessment and plan with medical team including food and beverage intern and resident physician. Documentation for date of: 12/25/24 Subjective Subjective Interval history: No acute overnight events. Obtained MRI that showed evolution of previous right-sided pontine infarct from 14 x 5 mm to 17 x 7 mm, but no additional infarcts seen. Spoke to in-house neurologist, will continue with current management and transfer not needed at this time for neurosurgery. Will continue with solo Plavix given allergy to aspirin as well as high intensity statin with strict blood pressure control. Otherwise, vital signs stable, and labs unremarkable. Will follow-up with further neurology recommendations and monitor for 1 more day. Exam Vital Signs Temp Pulse Resp BP Pulse Ox O2 Del Method 97.1 F 89 19 156/80 H 95 Room Air 12/25/24 08:00 12/25/24 08:37 12/25/24 08:00 12/25/24 08:37 12/25/24 08:00 12/25/24 08:00 Narrative Exam General: AOx3, no acute distress, able to speak full sentences HEENT: NC/AT, mucous membranes moist, bilateral sclera anicteric Cardiovascular: regular rate and rhythm, S1/S2 present, no murmurs appreciated Pulmonary: clear to auscultation bilaterally, no rales/rhonchi/wheezes Abdominal: soft, non-tender, non-distended, no rebound/guarding, normal bowel sounds present Musculoskeletal: normal ROM, no peripheral edema Skin: warm and dry, intact, no rashes Neuro: - CN II-XII grossly intact, patient states that it is difficult to smile - Strength 5/5 bilaterally in upper and lower extremities - No paresthesias Objective Labs 12/25/24 04:38 12/25/24 04:38 Labs: Laboratory Results - last 24 hr 12/24/24 12/24/24 12/25/24 13:35 16:01 04:38 WBC 8.6 8.4 RBC 4.49 L 4.18 L Hgb 14.3 13.3 L Hct 40.3 L 38.8 L MCV 90 93 MCH 31.8 31.8 MCHC 35.5 34.3 RDW Std Deviation 44.0 H 46.5 H Plt Count 356 D 223 D Neut % (Auto) 56 53 Lymph % (Auto) 30 [place] % (Auto) 9 10 Eos % (Auto) 3 6 Baso % (Auto) 1 1 Neut # (Auto) 4.9 4.4 Lymph # (Auto) 2.6 2.5 [place] # (Auto) 0.8 0.8 Eos # (Auto) 0.3 0.5 Baso # (Auto) 0.1 0.1 Immature Gran # (Auto) 0.04 H 0.05 H Absolute Nucleated RBC 0.00 0.00 Immature Gran % 1 H 1 H Nucleated RBC % 0 0 PT 11.0 INR 1.0 APTT 27.1 Sodium 138 141 Potassium 4.1 3.7 Chloride 104 104 Carbon Dioxide 22.0 25.4 Anion Gap 12 12 BUN 14 13 Creatinine 1.0 0.8 Estim Creat Clear Calc Not Performed. 75.4 eGFR > 60 > 60 BUN/Creatinine Ratio 14 16 Glucose 170 H D 111 H D Calculated Osmolality 280 282 Calcium 8.8 8.6 Corrected Calcium 8.8 Magnesium 1.9 1.8 Total Bilirubin 0.4 AST 22 ALT 17 Alkaline Phosphatase 65 Troponin I < 0.020 Total Protein 7.1 Albumin 4.1 Globulin 3.0 Albumin/Globulin Ratio 1.4 Ur Collection Type Clean Catch Urine Color Lt-Yellow Urine Clarity Clear Urine pH 7.5 H Ur Specific [place] > 1.035 H Urine Protein Negative Urine Glucose (UA) Negative Urine Ketones Negative Urine Blood Negative Urine Nitrite Negative Urine Bilirubin Negative Urine Urobilinogen (Auto) Negative Ur Leukocyte Esterase Negative Urine RBC 1 Urine WBC 1 Ur Squamous Epith Cells < 1 Urine Bacteria None Urine Opiates Screen Negative Urine Fentanyl Screen Negative Ur Barbiturates Screen Negative U Amphetamin/Meth Scrn Negative U Benzodiazepines Scrn Negative U Cocaine Metab Screen Negative U Marijuana (THC) Screen Negative Quality Measures Quality Measures none Advance care planning discussed with:: patient and child Assessment & Plan Assessment Current Active Medications: Generic Name Dose Route Start Last Admin Trade Name Freq PRN Reason Stop Dose Admin Acetaminophen 650 mg 12/24/24 18:07 Acetaminophen 325 Mg Tablet PO 01/23/25 18:06 Q6H PRN PAIN OR FEVER > 100.4 Atenolol 50 mg 12/25/24 09:00 12/25/24 08:37 Atenolol 25 Mg Tablet PO 01/24/25 08:59 50 mg QAM MARGAUX Administration Atorvastatin Calcium 80 mg 12/24/24 21:00 12/24/24 21:18 Atorvastatin Calcium 20 Mg Tablet PO 01/23/25 20:59 80 mg HS MARGAUX Administration Clopidogrel Bisulfate 75 mg 12/24/24 15:45 12/25/24 08:37 Clopidogrel Bisulfate 75 Mg Tablet PO 01/23/25 15:44 75 mg QDAY MARGAUX Administration Lactated Ringer's 1,000 mls @ 75 mls/hr 12/24/24 16:34 12/25/24 04:52 Lactated Ringers IV 01/23/25 16:33 75 mls/hr .[id number] MARGAUX Administration Labetalol HCl 10 mg 12/24/24 15:47 12/24/24 19:18 Labetalol Inj 5 Mg/Ml Vial 20 Ml IVP 01/23/25 15:44 10 mg Q10MIN PRN Administration Hypertension Losartan Potassium 50 mg 12/24/24 16:00 12/25/24 08:36 Losartan Potassium 25 Mg Tablet PO 01/23/25 15:59 50 mg QDAY MARGAUX Administration Nifedipine 30 mg 12/25/24 09:00 12/25/24 08:37 Nifedipine Xl 30 Mg Tabcr PO 01/24/25 08:59 30 mg QDAY MARGAUX Administration Ondansetron HCl 4 mg 12/24/24 15:34 Ondansetron Inj 2 Mg/Ml Inj 2 Ml IVP 01/23/25 15:33 Q4HR PRN NAUSEA OR VOMITING Plan Tolu Arce is an 84-year-old male with a past medical history of hypertension, hyperlipidemia, and 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 #Evolution of acute right brainstem infarct from 14 to 17 mm #Slurred speech Recent right-sided pontine stroke now presenting with waxing and waning left- sided weakness after being discharged with slurred speech and facial droop. Also presents with elevated blood pressure and states that he took his medications later than usual today. Tele-neurology recommended obtaining MRI to re-evaluate for possible evolution of pre-existing stroke vs new ischemic event. Obtained MRI that showed evolution of previous right-sided pontine infarct from 14 x 5 mm to 17 x 7 mm, but no additional infarcts seen. ? In-house neurology following, appreciate recommendations ? Passed speech evaluation -> cardiac diet ? Physical therapy ordered ? Plavix 75 mg p.o. daily ? Atorvastatin 80 mg p.o. daily #Hypertensive urgency versus emergency #History of hypertension Per in-house neurology recommendations, recommend strict blood pressure control to decrease risk of hemorrhagic conversion. ? Losartan increased from 50 to 75 mg p.o. daily ? Atenolol 50 mg p.o. daily ? Nifedipine 30 mg p.o. daily ? Labetalol 10 mg IVP prn for BP > 140 #Hyperlipidemia ? Atorvastatin as above Hospital management: Disposition: strict BP control and further neurology recommendations Fluids: not indicated Diet: cardiac Lines: PIV DVT prophylaxis: SCDs CODE STATUS: full code ----- Plan discussed with attending physician Dr. Nader Shin MD PGY-1 Internal Medicine
[2024-12-25] MEDS: LABETALOL INJ 5 MG/ML VIAL 20 ML 10 MG IVP ×2 (12:28→16:14)
--- NOTE | 2024-12-25 14:26 | PC.SS ---
Rounding Note: MRI (+). Neurology recommendations are pending.
[2024-12-25] MEDS: LOSARTAN POTASSIUM 25 MG TABLET PO (17:20)
--- NOTE | 2024-12-25 17:54 | PC.NURSE ---
1208 Dr. Doe notified of bp 155/69. ordered to give labetalol. Recheck bp at 1430 bp 150/73 Dr. Prado notified. 1600 bp 155/[address] montez, ordered to give labetalol. Repeat bp at 1700 160/77 Dr. Kuo notified, x1 25mg losartan ordered.
--- NOTE | 2024-12-25 18:00 | PC.NURSE ---
Pt having slight R eye droop, Dr. Gonzalez at bedside to assess, no new orders.
[2024-12-25] MEDS: ATORVASTATIN CALCIUM 20 MG TABLET 80 MG PO (20:43)
--- NOTE | 2024-12-25 23:22 | ESPR_ITS ---
Documentation for date of: 12/25/24 Subjective Subjective Interval history: Patient was seen in telemetry at the bedside with his family. No new symptoms reported. Denies any weakness paresthesias or headache or dizziness. Tolerating oral diet well. Exam - Neurology Vital Signs Temp Pulse Resp BP Pulse Ox O2 Del Method 97.0 F 75 15 146/72 H 95 Room Air 12/25/24 20:00 12/25/24 20:18 12/25/24 20:18 12/25/24 20:00 12/25/24 20:00 12/25/24 20:00 Narrative Exam GENERAL APPEARANCE: Well hydrated, well-nourished in no acute distress. HEENT: Normocephalic, atraumatic, extraocular movements intact. Pupils: Equal reacting to light and accommodation NECK: Supple, no JVD or bruits. CARDIOVASULAR: Heart: S1, S2 heard, regular without S3-S4 or murmur no rubs or gallops. LUNGS/CHEST: Clear to auscultation bilaterally. No rails, rhonchi, or wheezing. Normal inspection. ABDOMEN: Soft, nontender, with normal bowel sounds. No pulsatile masses. No rebound, rigidity, or guarding. Normal inspection and palpation. EXTREMITIES: Normal inspection and palpation. No edema, clubbing or cyanosis. SKIN: Warm and dry without rashes. Normal inspection. MUSCULOSKELETAL: No cervical, thoracic, lumbar or midline bony tenderness. Normal inspection. NEURO: Alert, awake and oriented x3. Cranial nerves: II through XII grossly intact. Speech and language: Normal with no dysarthria or dysphasia. Motor system: Tone and bulk: Normal: Strength: 5 out of 5 in all 4 extremities; No pronator drift noted. Deep tendon reflexes: 2+ bilaterally symmetrical. Plantar reflex: Downgoing bilaterally. Sensory system: Intact to all modalities of sensation bilaterally. Coordination: Intact to [id number] and [id number] test bilaterally. No ataxia, no dysmetria, or dysdiadochokinesia noted. No intention tremors noted. Gait: Normal. No signs of meningeal irritation noted. PSYCHIATRIC: Normal mood and affect. Objective Labs 12/26/24 05:15 12/26/24 05:15 Labs: Laboratory Results - last 24 hr 12/25/24 04:38 WBC 8.4 RBC 4.18 L Hgb 13.3 L Hct 38.8 L MCV 93 MCH 31.8 MCHC 34.3 RDW Std Deviation 46.5 H Plt Count 223 D Neut % (Auto) 53 Lymph % (Auto) 30 [place] % (Auto) 10 Eos % (Auto) 6 Baso % (Auto) 1 Neut # (Auto) 4.4 Lymph # (Auto) 2.5 [place] # (Auto) 0.8 Eos # (Auto) 0.5 Baso # (Auto) 0.1 Immature Gran # (Auto) 0.05 H Absolute Nucleated RBC 0.00 Immature Gran % 1 H Nucleated RBC % 0 Sodium 141 Potassium 3.7 Chloride 104 Carbon Dioxide 25.4 Anion Gap 12 BUN 13 Creatinine 0.8 Estim Creat Clear Calc 75.4 eGFR > 60 BUN/Creatinine Ratio 16 Glucose 111 H D Calculated Osmolality 282 Calcium 8.6 Magnesium 1.8 Assessment & Plan Assessment and plan (1) Acute brainstem infarction: Status: Acute Assessment and plan: Continue with Plavix and statin. MRI brain showed acute pontine infarction with extension compared to the previous study No significant neurological deficit on exam Continue with Plavix and statin and keep the blood pressure under better control (2) Hypertension: Status: Chronic Assessment and plan: Continue with aggressive pressure management from tomorrow (3) Obesity: Status: Chronic Assessment and plan: Advise lifestyle changes with diet and exercise. Will consider doing sleep study as an outpatient
[2024-12-26] VITALS (11 sets, daily range): BP systolic 131–165; BP diastolic 70–99; PULSE 60–80; RESP 15–95; TEMP 36.1–36.4; O2SAT 93–98
[2024-12-26 05:34] LABS: Basophils # (Auto) 0.1 Thou/mm3 (0.0-0.2); Basophils % (Auto) 1 % (0-2.5); Eosinophils # (Auto) 0.6 Thou/mm3 (0.0-0.5); Eosinophils % (Auto) 6 % (0-10); Hematocrit 40.2 % (41.0-53.0); Hemoglobin 13.5 g/dL (13.5-16.0); Immature Granulocytes % (Auto) 1 % (0-0); Immature Granulocytes Auto 0.04 Thou/mm3 (0.00-0.00); Lymphocytes # (Auto) 2.9 Thou/mm3 (1.0-4.8); Lymphocytes % (Auto) 33 % (10-50); Mean Corpuscular HGB Conc 33.6 g/dl (31.0-37.0); Mean Corpuscular Hemoglobin 31.7 pg (25.0-35.0); Mean Corpuscular Volume 94 fL (80-100); Monocytes # (Auto) 0.8 Thou/mm3 (0.0-0.8); Monocytes % (Auto) 9 % (0-12); Neutrophils # (Auto) 4.5 Thou/mm3 (1.8-7.7); Neutrophils % (Auto) 51 % (37-80); Nucleated Red Blood Cell % 0 /100 WBC (0); Platelet Count 243 Thou/mm3 (140-440); RDW Standard Deviation 46.6 fL (35.1-43.9); Red Blood Count 4.26 Miln/mm3 (4.50-5.90); White Blood Count 8.9 Thou/mm3 (3.8-10.6)
[2024-12-26] MEDS: LABETALOL INJ 5 MG/ML VIAL 20 ML 10 MG IVP ×2 (06:05→12:34)
[2024-12-26 06:36] LABS: Anion Gap 11 (7-16); BUN/Creatinine Ratio 14 Ratio (12-20); Blood Urea Nitrogen 11 mg/dL (9-23); Calcium 8.7 mg/dL (8.3-10.6); Carbon Dioxide 26.1 mMol/L (20.0-31.0); Chloride 103 mMol/L (98-107); Creatinine (Component) 0.8 mg/dL (0.6-1.3); Estimated Creatinine Clearance 76.4 mL/min (>60); Glucose 105 mg/dL (74-106); Osmolality,Calculated 278 (275-295); Potassium 3.8 mMol/L (3.4-5.1); Sodium 140 mMol/L (136-145); eGFR > 60 See Note
[2024-12-26] MEDS: CLOPIDOGREL BISULFATE 75 MG TABLET PO (08:26)
[2024-12-26] MEDS: atenoloL 25 MG TABLET 75 MG PO (08:27)
[2024-12-26] MEDS: LOSARTAN POTASSIUM 25 MG TABLET 100 MG PO (08:27)
[2024-12-26] MEDS: NIFEdipine XL 30 MG TABCR 60 MG PO (08:28)
--- NOTE | 2024-12-26 10:58 | ESDS_ITS ---
<Statement entered by Adri Doe MD - 01/03/25 13:29> I reviewed above note and agree with findings and plans. I have also personally examined the patient with medicine team and went over assessment and plan with medical team including international account executive and resident physician. Planned Discharge Date 12/26/24 DS: Providers Provider Date of admission: 12/25/24 09:51 Primary care physician: Loco Dougherty MD Admitting Provider: Adri Doe MD Attending Provider on Admission: Adri Doe MD Consults: 12/24/24 13:34 Consult to Neurology / Tele-Neurology Routine Comment: Consulting Provider: [facility] 12/24/24 15:37 Consult to Neurology / Tele-Neurology Routine Comment: Consulting Provider: Anibal Gonzalez Referral Physical Therapy Routine Comment: Physician Instructions: Referral Speech Therapy Routine Comment: Attending Provider on DC: Med Shin MD Discharging Provider: Med Shin MD DS: Diagnosis Problem List Completed Was Problem List Reviewed/Reconciled?: Yes Hospital Course Hospital Course Hospital course: Tolu Arce is an 84-year-old male with a past medical history of hyper tension, hyperlipidemia, and 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 Echo was negative for PFO or ASD. He was eventually discharged with Plavix only due to allergy to aspirin (swelling, itching). Given recurrent symptoms, stroke alert was called in the ED and per teleneurology recommendations will observe patient overnight and order MRI to evaluate for evolution of previous stroke vs new ischemic event. Otherwise, also spoke to in-house neurology who recommended strict blood pressure control to reduce risk of hemorrhagic conversion but to continue with plavix. In ED, CT head showed no acute intracranial pathologies but did show previously noted right sided pontine infarct and CTA head/neck showed 90% stenosis of origin of left ICA and 40% stenosis of right carotid bifurcation but no LVO's or thrombus. BP noted to be elevated in 170s to 180s and given nifedipine 30 mg x 1 and started labetalol 10 mg IV push as needed for BP greater than 140. Throughout hospital course, no acute overnight events occurred. Repeat MRI showed evolution of previous right-sided pontine infarct from 14 x 5 mm to 17 x 7 mm, but no additional infarcts seen. Neurology recommended to continue with current management of plavix and atorvastatin with strict blood pressure control. Eventually, patient's home regimen was increased and patient blood pressure on day of discharge 140s/70s. He will need close follow-up outpatient for continued blood pressure monitoring and medication adjustment as well as close follow-up with neurology outpatient. Otherwise, vital signs stable and CBC and chem panel unremarkable. Diagnoses during admission: #Evolution of acute right brainstem infarct from 14 to 17 mm #Slurred speech #Hypertensive urgency versus emergency #History of hypertension #Hyperlipidemia Discharge instructions: ? Your losartan has been increased to 100 mg daily ? You've been started on nifedipine 60 mg daily ? Continue taking all other home medications as prescribed ? Recommend to keep a blood pressure log and bring it to your primary care physician (PCP) ? Follow-up with neurologist, Dr. Gonzalez, outpatient within 1 week of discharge and consider doing sleep study as outpatient ? Follow-up with PCP within 1-2 weeks of discharge ? If you do not have a PCP, you can follow-up at the [facility] (you can call [phone] to make an appointment) ? If you wish to follow-up with Dr. Shin, schedule appointment on Tuesday afternoons ? Return to ED if symptoms worsen or recur ----- After examining the patient and reviewing their clinical data, they would benefit from being admitted to the hospital for further management. Plan discussed with attending physician Med Shin MD PGY-1 Internal Medicine Time Spent with Patient Time attestation: Total time spent providing and/or coordinating discharge services: Time spent: Greater than 30 minutes Quality: Stroke Pt Provided Written Stroke Discharge Instructions: Yes Exam Vital Signs Temp Pulse Resp BP Pulse Ox O2 Del Method 97.6 F 80 17 160/76 H 95 Room Air 12/26/24 08:00 12/26/24 08:38 12/26/24 08:38 12/26/24 08:28 12/26/24 08:00 12/26/24 08:00 Narrative Exam General: AOx3, no acute distress, able to speak full sentences HEENT: NC/AT, mucous membranes moist, bilateral sclera anicteric Cardiovascular: regular rate and rhythm, S1/S2 present, no murmurs appreciated Pulmonary: clear to auscultation bilaterally, no rales/rhonchi/wheezes Abdominal: soft, non-tender, non-distended, no rebound/guarding, normal bowel sounds present Musculoskeletal: normal ROM, no peripheral edema Skin: warm and dry, intact, no rashes Neuro: - CN II-XII grossly intact, patient states that it is difficult to smile - Strength 5/5 bilaterally in upper and lower extremities - No paresthesias Discharge Plan Plan Patient Disposition: Home w/HOME HEALTH Care Plan Goals: ? Your losartan has been increased to 100 mg daily ? You've been started on nifedipine 60 mg daily ? Continue taking all other home medications as prescribed ? Recommend to keep a blood pressure log and bring it to your primary care physician (PCP) ? Follow-up with neurologist, Dr. Gonzalez, outpatient within 1 week of discharge and consider doing sleep study as outpatient ? Follow-up with PCP within 1-2 weeks of discharge ? If you do not have a PCP, you can follow-up at the [facility] (you can call [phone] to make an appointment) ? If you wish to follow-up with Dr. Shin, schedule appointment on Tuesday afternoons ? Return to ED if symptoms worsen or recur Prescriptions/Referrals Prescriptions/Med Rec: New losartan 100 mg tablet 100 mg PO QDAY 30 Days Qty: 30 0RF nifedipine 60 mg tablet extended release 24hr 60 mg PO QDAY 30 Days Qty: 30 0RF Continued atorvastatin 80 mg tablet 80 mg PO QDAY 30 Days Qty: 30 2RF clopidogrel 75 mg Tablet 75 mg PO QDAY 30 Days Qty: 30 1RF atenolol 50 mg tablet 50 mg PO QDAY 30 Days Qty: 30 0RF Discontinued losartan 50 mg tablet 50 mg PO QDAY Referrals: Loco Dougherty MD [Primary Care Provider] - Patient/Caregiver Discharge Instructions Education Materials: Checking Your Own Blood Pressure, Controlling High Blood Pressure, Discharge Instructions for Stroke, Blood Pressure Check Steps Print Language: Sinhala Stand Alone Forms: Sri Award Info., Patient Portal Info Letter Discharge Order Discharge Orders: Discharge (Routine); Ordered 12/26/24 Ordered By: Med Riojas Rigilberto Quality Discharge Quality Measures VTE prophylaxis
--- NOTE | 2024-12-26 15:27 | PC.SS ---
Rounding Note: Plan is to d/c patient home today.
--- NOTE | 2024-12-26 18:00 | PC.NURSE ---
Pt and family member at bedside for discharge instructions. Interpretor Debra CHAVES [id number] utilized for instructions. Stroke booklet and discharge instructions given to patient and family member. Verbalized have walker at home and will be able to olive picker medications from pharmacy tomorrow. Dr. Gonzalez at bedside, ok to discharge. Notifed Dr. Shin of last labetalol dose at 1230, ok to still discharge with bp 145/92. Pt and family feel safe and ready to discharge. Instructed to keep a log of bp for primary to review and to be cautions with walking due to blood thinner.
--- NOTE | 2024-12-26 23:34 | PD.NEUROPROG ---
Documentation for date of: 12/26/24 Subjective Subjective Interval history: Patient was seen in telemetry at the bedside with his family. No new symptoms reported. Denies any weakness paresthesias or headache or dizziness. Tolerating oral diet well. Exam - Neurology Vital Signs Temp Pulse Resp BP Pulse Ox O2 Del Method 97 F 72 19 145/92 H 96 Room Air 12/26/24 18:00 12/26/24 18:00 12/26/24 18:00 12/26/24 18:00 12/26/24 18:00 12/26/24 18:00 Narrative Exam GENERAL APPEARANCE: Well hydrated, well-nourished in no acute distress. HEENT: Normocephalic, atraumatic, extraocular movements intact. Pupils: Equal reacting to light and accommodation NECK: Supple, no JVD or bruits. CARDIOVASULAR: Heart: S1, S2 heard, regular without S3-S4 or murmur no rubs or gallops. LUNGS/CHEST: Clear to auscultation bilaterally. No rails, rhonchi, or wheezing. Normal inspection. ABDOMEN: Soft, nontender, with normal bowel sounds. No pulsatile masses. No rebound, rigidity, or guarding. Normal inspection and palpation. EXTREMITIES: Normal inspection and palpation. No edema, clubbing or cyanosis. SKIN: Warm and dry without rashes. Normal inspection. MUSCULOSKELETAL: No cervical, thoracic, lumbar or midline bony tenderness. Normal inspection. NEURO: Alert, awake and oriented x3. Cranial nerves: II through XII grossly intact. Speech and language: Normal with no dysarthria or dysphasia. Motor system: Tone and bulk: Normal: Strength: 5 out of 5 in all 4 extremities; No pronator drift noted. Deep tendon reflexes: 2+ bilaterally symmetrical. Plantar reflex: Downgoing bilaterally. Sensory system: Intact to all modalities of sensation bilaterally. Coordination: Intact to [id number] and uumb-[id number]-[id number] test bilaterally. No ataxia, no dysmetria, or dysdiadochokinesia noted. No intention tremors noted. Gait: Normal. No signs of meningeal irritation noted. PSYCHIATRIC: Normal mood and affect. Objective Labs 12/26/24 05:15 12/26/24 05:15 Labs: Laboratory Results - last 24 hr 12/26/24 05:15 WBC 8.9 RBC 4.26 L Hgb 13.5 Hct 40.2 L MCV 94 MCH 31.7 MCHC 33.6 RDW Std Deviation 46.6 H Plt Count 243 Neut % (Auto) 51 Lymph % (Auto) 33 [place] % (Auto) 9 Eos % (Auto) 6 Baso % (Auto) 1 Neut # (Auto) 4.5 Lymph # (Auto) 2.9 [place] # (Auto) 0.8 Eos # (Auto) 0.6 H Baso # (Auto) 0.1 Immature Gran # (Auto) 0.04 H Absolute Nucleated RBC 0.00 Immature Gran % 1 H Nucleated RBC % 0 Sodium 140 Potassium 3.8 Chloride 103 Carbon Dioxide 26.1 Anion Gap 11 BUN 11 Creatinine 0.8 Estim Creat Clear Calc 76.4 eGFR > 60 BUN/Creatinine Ratio 14 Glucose 105 Calculated Osmolality 278 Calcium 8.7 Assessment & Plan Assessment and plan (1) Acute brainstem infarction: Status: Acute Assessment and plan: Continue with Plavix and statin. MRI brain showed acute pontine infarction with extension compared to the previous study No significant neurological deficit on exam Continue with Plavix and statin and keep the blood pressure under better control (2) Hypertension: Status: Chronic Assessment and plan: Continue with aggressive pressure management (3) Obesity: Status: Chronic Assessment and plan: Advise lifestyle changes with diet and exercise. Will consider doing sleep study as an outpatient
--- NOTE | 2024-12-27 09:56 | PC.CC ---
Addendum entered by Florin Varghese RN 12/27/24 11:47: [facility] accepted the pt. Booked [facility]. Pending start of care date. Addendum entered by Florin Varghese RN 12/27/24 11:47: 12 HH agencies declined the pt. Original Note: HH referral sent on [facility]. Awaiting responses. Pending start of care date.
--- NOTE | 2024-12-29 10:56 | PC.CC ---
Patient was referred to [facility] services, start of care 12/31/24.
== END 2024-12-26 18:30 | disposition home health service (06) | DRG 45 ==
LOC: SERX 16:19 → SERHOLD 16:30 → S2NX 12-25 09:34 → SERHOLD 12-25 09:54 → S2NX 12-25 09:55 → SERHOLD 12-25 09:56
PROVIDERS: Nurse Practitioner Family; Admitting Provider Internal Medicine; Emergency Provider Emergency Medicine; PCP Family Medicine; Visit Provider Internal Medicine
DX: I63.29 Cerebral infarction due to unspecified occlusion or stenosis of other precerebral arteries (principal); E78.5 Hyperlipidemia, unspecified; G81.94 Hemiplegia, unspecified affecting left nondominant side; I10 Essential (primary) hypertension; R29.810 Facial weakness; Z88.6 Allergy status to analgesic agent; E66.9 Obesity, unspecified; R47.81 Slurred speech; Z79.02 Long term (current) use of antithrombotics/antiplatelets; Z79.899 Other long term (current) drug therapy; Z86.73 Personal history of transient ischemic attack (TIA), and cerebral infarction without residual deficits; R29.704 NIHSS score 4
CPT/HCPCS: 36415; 70450; 70496; 70498; 70544; 80048; 80053; 80307; 81001; 83735; 84484; 85025; 85610; 85730; 87081; 87086; 92610; 93005; 96374; 96375; 97162; 99285; A4649; G0378; J0360; J3490; J7120; Q9967; A9270; J1920